=== PATIENT | female | born 1970 | race Caucasian/White ===

== ENCOUNTER 2023-10-14 10:14 | Observation (INO) | payer MEDICAID, SELFPAY ==
[2023-10-14] VITALS (11 sets, daily range): BP systolic 132–172; BP diastolic 61–90; PULSE 78–97; RESP 16–24; TEMP 36.4–37.1; O2SAT 92–96; BMI 40.3
--- NOTE | ~2023-10-14 | XR_ITS ---
EXAMINATION: XR chest 1V portable DATE: 10/14/2023 10:35 INDICATION: Dyspnea. TECHNIQUE: A single frontal view of the chest was obtained. COMPARISON: None. FINDINGS: There is no pneumonia, pleural effusion, or pneumothorax. The heart size is normal. IMPRESSION: 1. No acute cardiopulmonary disease. Reviewed, dictated and finalized at location A. MOVING TECHNICIAN
--- NOTE | ~2023-10-14 | CT_ITS ---
. EXAMINATION: CTA chest PE protocol DATE: 10/14/2023 11:52 INDICATION: Shortness of breath. Elevated d-dimer. TECHNIQUE: Computed tomography angiography (CTA) of the chest was performed with 100 mL Omnipaque-350 intravenous contrast timed to evaluate the pulmonary arteries. Coronal maximum intensity projection 3D-reconstructions were created by the technologist. Automated exposure control and iterative reconst ruction technique were employed. Exam dose: 918.83 mGy-cm total exam DLP. COMPARISON: October 14, 2023 portable AP chest FINDINGS: There is diagnostic contrast enhancement of the pulmonary arteries and no evidence of pulmo nary embolism. No thoracic aortic aneurysm or dissection is detected. Normal heart size. No pericardial or pleural e ffusion. No hilar or mediastinal mass lesion or lymphadenopathy is detected. There are scattered patchy bilateral pulmonary infiltrates with minimal involvement of the right uppe r lobe and more prominent involvement of the left upper lobe, including especially the lingula and le ft lower lobe, with tree-in-bud infiltrates are noted. Findings suggest bilateral pneumonia. Small sliding hiatal hernia. Diffuse idiopathic skeletal hyperostosis of the thoracic spine. Degenerative disc disease at C6-7. IMPRESSION: Patchy bilateral pulmonary infiltrates, greatest in the lingula and left lower lobe, sug gesting bilateral pneumonia No evidence of pulmonary embolus Reviewed, dictated and finalized at [facility]. Reviewed, dictated and finalized at location L. VARNISHER IMPRESSION: Patchy bilateral pulmonary infiltrates, greatest in the lingula an d left lower lobe, suggesting bilateral pneumonia No evidence of pulmonary embolus
--- NOTE | 2023-10-14 10:26 | ECG_ITS ---
Measurements Intervals [place] Rate: 80 P: 55 RI: 156 QRS: 30 QRSD: 89 T: 47 QT: 362 QTc: 418 Interpretive Statements SINUS RHYTHM LOW QRS VOLTAGE IN PRECORDIAL LEADS [QRS DEFLECTION < 1.0 mV IN CHEST LEADS] POSSIBLE ANTERIOR MYOCARDIAL INFARCTION , OF INDETERMINATE AGE [30 ms Q WAVE IN V3/V4, OR R < 0.2 mV IN V4] NO PREVIOUS ECG AVAILABLE FOR COMPARISON Electronically Signed On 10-14-2023 12:32:32 PASTE MAKER by Tawanda Kilpatrick M.D.
[2023-10-14] MEDS: IPRATROPIUM 0.5 MG/ALBUTEROL SULFATE 2.5 MG AMPUL.NEB 3 ML INHALATION ×2 (10:38→17:42)
[2023-10-14] MEDS: methylPREDNISolone SOD SUCC 125 MG VIAL IV PUSH (10:48)
[2023-10-14 10:55] LABS: Hematocrit 47.2 % (35.0-49.0); Hemoglobin 15.9 g/dL (12.0-15.0); Immature Granulocyte Absolute 0.04 K/mm3 (0.00-0.00); Immature Granulocyte Percent A 0.7 % (0.0-0.0); Lymphocytes Absolute Auto 0.66 K/mm3 (1.10-4.50); Lymphocytes Percent Auto 11.1 % (18.0-42.0); Mean Corpuscular HGB Conc 33.7 g/dL (32.0-36.0); Mean Corpuscular Hemoglobin 30.2 pg (27.0-31.0); Mean Corpuscular Volume 89.6 fL (78.0-102.0); Mean Platelet Volume 9.4 fl (9.2-11.8); Monocytes Absolute Auto 0.58 K/mm3 (0.10-0.90); Monocytes Percent Auto 9.8 % (2.0-11.0); Neutrophils Absolute Auto 4.7 K/mm3 (1.7-7.2); Neutrophils Percent Auto 78.4 % (50.0-70.0); Platelet Count Result 265 K/mm3 (150-420); Red Blood Count 5.27 M/mm3 (4.20-5.40); Red Cell Distribution Width 12.2 % (11.6-14.4); White Blood Count 5.9 K/mm3 (4.8-10.8)
[2023-10-14 10:58] LABS: Base Excess ABG 0.9 mmol/L (0-2); HCO3 ABG 23.8 mmol/L (23-29); Oxygen Content ABG 20.9 %vol (16.0-22.0); Oxygen Saturation ABG 92.6 % (95-97); Oxyhemoglobin 91.8 % (94-100); PCO2 ABG 33.3 mmHg (35-45); PO2 ABG 64.2 mmHg (80-90); Total Hemoglobin 16.2 g/dL (12.0-18.0); pH ABG 7.47 (7.35-7.45)
[2023-10-14 10:59] LABS: Device ROOM AIR; Modified Allen's Test Pass; Site Drawn LEFT RADIAL
[2023-10-14 11:11] LABS: Partial Thromboplastin Time 25.6 SEC (23.90-30.70); Prothrombin Time 10.9 Seconds (9.50-12.10)
[2023-10-14 11:14] LABS: D Dimer 1.13 mg/L (0.19-0.50)
[2023-10-14 11:19] LABS: Alanine Aminotransferase 46 U/L (14-59); Albumin Level 3.1 g/dL (3.4-5.0); Alkaline Phosphatase 83 U/L (46-116); Anion Gap 11 mmol/L (8-16); Aspartate Amino Transferase 49 U/L (15-37); Bilirubin,Total 0.4 mg/dL (0.00-1.00); Blood Urea Nitrogen 8 mg/dL (7-18); Calcium 8.4 mg/dL (8.5-10.1); Carbon Dioxide 27 mmol/L (21-32); Chloride 101 mmol/L (98-108); Estimated CRCL calculation 92 ml/min; Estimated Glomerular Filt Rate > 60; Glucose 119 mg/dL (70-99); Magnesium 1.8 mg/dL (1.8-2.4); NT Pro B Type Natriuretic Pept 280 pg/mL (0-125); Osmolality Calculated 287 mOsm/kg (285-295); Potassium 3.1 mmol/L (3.5-5.1); Sodium 139 mmol/L (136-145); Troponin I 17.2 ng/L (0.00-60.4)
[2023-10-14 11:31] LABS: SARS-CoV-2 RNA PCR Negative (Negative)
[2023-10-14 11:34] LABS: Influenza A QL RT-PCR Positive (Negative); Influenza B QL RT-PCR Negative (Negative)
[2023-10-14 11:35] LABS: RSV RNA, RT-PCR Negative (Negative)
--- NOTE | 2023-10-14 12:19 | ED.SOB ---
HPI - SOB/Dyspnea General Chief Complaint: Shortness of Breath/Dyspnea Stated Complaint: sob Source: patient Mode of arrival: ambulatory Limitations: no limitations History of Present Illness HPI Narrative: this is a 52-year-old female with history of COPD and has been having cough congestion over the last 2 to 3 days with temperature of 102 at home feeling feverish with chills and body aches. Cough is nonproductive, with some body aches, patient denies chest pain there is some nausea with no vomiting no abdominal pain no diarrhea constipation no flank pain no dysuria. Patient has a history of COPD has not had an inhaler for the last year patient states that she has been doing well without it since she stopped smoking since months ago. MD elicited complaint: shortness of breath, cough and pain with inspiration Pertinent past history: COPD Onset (ago): day(s) Context: recent illness and anxiety Timing: constant Severity: moderate Related Data Home Medications Medication Instructions Recorded Confirmed No Home Medications 10/14/23 10/14/23 Allergies Allergy/AdvReac Type Severity Reaction Status Date / Time Sulfa (Sulfonamide Allergy Hives Verified 10/14/23 10:21 Antibiotics) Review of Systems Review of Systems: All systems reviewed & are unremarkable except as noted in HPI and below PMFSH Past Medical History Medical History COPD (chronic obstructive pulmonary disease) Exam Const: General: no acute distress and ill appearing HENMT: Head: normal to inspection Neck: Neck: normal visual inspection, no lymphadenopathy and no meningeal signs Chest: Chest palpation & inspection: normal inspection of the chest Resp: Effort & Inspection: normal respiratory effort Auscultation: wheezes and diminished lung sounds Cardio: Rate: regular rate Rhythm: regular rhythm GI: GI Palp: Yes Soft to palpation Auscultation: normal bowel sounds Skin: General skin exam: normal color Rashes: no rashes Neuro: General: patient oriented x3 and moves all extremities Extrem: General: normal to inspection and no clubbing, cyanosis or edema Psych: Mental Status: mental status grossly normal Affect: Anxious affect present Course Course Emergency Course: patient presents with some shortness of breath had a elevated D-dimer and CTA shows no acute pulmonary embolism but does show patchy infiltrate bilateral lung palacios, white count is 5.9 and her potassium is 3.1. Patient had a CTA which does show pneumonia and received ceftriaxone and azithromycin. Patient's vital signs her O2 sats are 95% on room air. Patient also received a dose of p.o. potassium with nebulizer treatment and Solu-Medrol. Patient also has positive diagnosis for influenza A. Vital Signs Vital signs: Vital Signs Temperature 36.7 C 10/14/23 10:15 Pulse Rate 82 10/14/23 10:15 Respiratory Rate 24 H 10/14/23 10:15 Blood Pressure 172/90 H 10/14/23 10:15 Pulse Oximetry 96 10/14/23 10:15 Oxygen Delivery Room Air 10/14/23 10:15 Temperature 36.7 C 10/14/23 10:15 Pulse Rate 78 10/14/23 11:08 Respiratory Rate 18 10/14/23 11:08 Blood Pressure 148/83 H 10/14/23 11:08 Pulse Oximetry 95 10/14/23 11:08 Oxygen Delivery Room Air 10/14/23 11:08 MDM - SOB/Dyspnea Lab Data 10/14/23 10:51 10/14/23 10:51 Labs: Lab Results 10/14/23 10/14/23 10/14/23 Range/Units 10:51 10:51 10:51 WBC 5.9 (4.8-10.8) K/mm3 RBC 5.27 (4.20-5.40) M/mm3 Hgb 15.9 H (12.0-15.0) g/dL Hct 47.2 (35.0-49.0) % MCV 89.6 (78.0-102.0) fL MCH 30.2 (27.0-31.0) pg MCHC 33.7 (32.0-36.0) g/dL RDW 12.2 (11.6-14.4) % Plt Count 265 (150-420) K/mm3 MPV 9.4 (9.2-11.8) fl Immature Gran % (Auto) 0.7 H (0.0-0.0) % Neut % (Auto) 78.4 H (50.0-70.0) % Lymph % (Auto) 11.1 L (18.0-42.0) % [place] % (Auto) 9.8
[2023-10-14] MEDS: POTASSIUM BICARBONATE 25 MEQ TABEF 50 MEQ PO (12:24)
[2023-10-14] MEDS: AZITHROMYCIN 500 MG/NS 250 ML 500 MG/250 ML BAG 250 MG IVPB (12:28)
--- NOTE | 2023-10-14 14:25 | PM.IMHP ---
H&P: HPI History of Present Illness Date/Time: 10/14/23 15:25 Chief Complaint: dyspnea Narrative: This is a 52 year old female patient with past history of COPD, obesity and fibromyalgia who is admitted to the hospital for Influenza A, COPD exacerbation and pneumonia. Patient reports feeling body aches, fever, decreased appetite, cough, fatigue, nausea, vomiting and headache that started 3 days ago and worsened each day. Today she came to ER where she tested positive for Influenza A. Patient reports that she previously used albuterol inhaler but does not currently take any medications. Patient reports she quit smoking 6 months ago and threw out her inhaler at the same time because she did not think she would need it anymore. In the ER patient had decreased potassium of 3.1 and positive D-Dimer. CTA completed to rule out PE. No PE but there were findings consistent with pneumonia so patient was started on IV Rocephin and Azithromycin. Patient reports missing work the past 3 days and wanting a work note on discharge. Review of Systems Review of Systems: All systems reviewed & are unremarkable except as noted in HPI and below PMFSH Past Medical History Medical History COPD (chronic obstructive pulmonary disease) Social History Social History Smoking status: Never smoker Second hand tobacco smoke exposure: No Alcohol intake: never Substance use: never Substance use type: does not use Do You Feel Safe in your Home?: Yes Lack of Transportation: No Lack of Food: Never True Current Housing: I Have Housing Concerned About Future Housing: No Difficulty Paying Gas/Electric Bills: No Difficulty Paying for Meds: No Currently Unemployed: No Education: High School Diploma/GED Difficulty w/ Childcare or Family Care: No Living arrangements: with friend(s) Occupation/Education: unemployed Gender identity (if verbalized by the patient): Female Sexual Orientation (if Verbalized by the Patient): Straight or Heterosexual Spiritual care concerns: No Meds Home Medications and Allergies Home Medications Medication Instructions Recorded Confirmed Type No Home Medications 10/14/23 10/14/23 History Allergies Allergy/AdvReac Type Severity Reaction Status Date / Time Sulfa (Sulfonamide Allergy Hives Verified 10/14/23 10:21 Antibiotics) Vital Signs Vital Signs - 24 hr 10/14/23 10:15 10/14/23 10:25 10/14/23 10:33 Temperature 36.7 C Pulse Rate 82 88 Respiratory Rate 24 H Blood Pressure 172/90 H Pulse Oximetry 96 96 Oxygen Delivery Room Air Room Air 10/14/23 10:39 10/14/23 11:01 10/14/23 11:08 Temperature Pulse Rate 79 84 78 Respiratory Rate 22 H 24 H 18 Blood Pressure 148/83 H Pulse Oximetry 92 95 95 Oxygen Delivery Room Air 10/14/23 12:43 Temperature 37.1 C Pulse Rate 78 Respiratory Rate 18 Blood Pressure 132/71 Pulse Oximetry 95 Oxygen Delivery Room Air Exam Narrative: GENERAL: Somewhat ill-appearing without acute distress HEAD: Normocephalic, atraumatic. ENT:? Mucous membranes moist. CHEST: Slight scattered wheezes on auscultation.? No respiratory distress. HEART: Regular rate and rhythm. ? Normal peripheral pulses. ABDOMEN: Soft, nontender, nondistended. Obese. EXTREMITIES: Normal range of motion. No peripheral edema. SKIN: Warm dry normal color NEURO: Alert and oriented x3. No neuro deficits noted. PSYCH: Normal mood and affect H&P: Results Labs Labs: Short CBC 10/14/23 Range/Units 10:51 WBC 5.9 (4.8-10.8) K/mm3 Hgb 15.9 H (12.0-15.0) g/dL Hct 47.2 (35.0-49.0) % Plt Count 265 (150-420) K/mm3 [facility] 10/14/23 10:51 Sodium 139 Potassium 3.1 L Chloride 101 Carbon Dioxide 27 BUN 8 Creatinine 0.67 Glucose 119 H Calcium 8.4 L Cardiac Enzymes 10/14/23
--- NOTE | 2023-10-14 14:45 | PC.NURSE ---
Pt admitted to room 202 from the ED. Pt is A/Ox3, vss. Pt is independent in her room. She has a deep loose cough that is productive. Pt given instruction regarding the call system, rapid response system and visiting hours. Pt verbalized understanding of instructions.
[2023-10-14] MEDS: MAGNESIUM OXIDE 400 MG TABLET PO (15:47)
[2023-10-14] MEDS: POTASSIUM CHLORIDE 20 MEQ ER TABLET 40 MEQ PO (15:47)
[2023-10-14] MEDS: ACETAMINOPHEN 325 MG TABLET 650 MG PO (15:48)
[2023-10-14] MEDS: SODIUM CHLORIDE 0.9% IV 1,000 ML 200 ML IV CONT (15:48)
--- NOTE | 2023-10-14 17:10 | PC.NURSE ---
Patient states she really does not want to take a narcotic if possible. Asking about taking oral diclofenac, states she has had it in the past and it worked well. HOST COORDINATOR Frankie notified. New orders received.
[2023-10-14] MEDS: DICLOFENAC SOD 75 MG TABLET.EC PO (17:50)
[2023-10-15] VITALS: BP 143/69; PULSE 90; RESP 19; TEMP 36.7; O2SAT 91
[2023-10-15] MEDS: IPRATROPIUM 0.5 MG/ALBUTEROL SULFATE 2.5 MG AMPUL.NEB 3 ML INHALATION ×2 (00:24→05:34)
[2023-10-15 00:27] VITALS: PULSE 70; RESP 16; O2SAT 92
[2023-10-15 00:44] VITALS: PULSE 71; RESP 16; O2SAT 95
[2023-10-15 05:19] LABS: Basophils Absolute Auto 0.01 K/mm3 (0.00-0.10); Basophils Percent Auto 0.2 % (0.0-1.0); Hematocrit 44.8 % (35.0-49.0); Hemoglobin 14.8 g/dL (12.0-15.0); Immature Granulocyte Absolute 0.03 K/mm3 (0.00-0.00); Immature Granulocyte Percent A 0.5 % (0.0-0.0); Lymphocytes Absolute Auto 1.24 K/mm3 (1.10-4.50); Lymphocytes Percent Auto 19.7 % (18.0-42.0); Mean Corpuscular Hemoglobin 30.1 pg (27.0-31.0); Mean Corpuscular Volume 91.1 fL (78.0-102.0); Mean Platelet Volume 9.4 fl (9.2-11.8); Monocytes Absolute Auto 0.83 K/mm3 (0.10-0.90); Monocytes Percent Auto 13.2 % (2.0-11.0); Neutrophils Absolute Auto 4.2 K/mm3 (1.7-7.2); Neutrophils Percent Auto 66.4 % (50.0-70.0); Platelet Count Result 260 K/mm3 (150-420); Red Blood Count 4.92 M/mm3 (4.20-5.40); Red Cell Distribution Width 12.5 % (11.6-14.4); White Blood Count 6.3 K/mm3 (4.8-10.8)
[2023-10-15 05:36] VITALS: PULSE 78; RESP 16; O2SAT 94
[2023-10-15 05:38] LABS: Alanine Aminotransferase 44 U/L (14-59); Albumin Level 2.8 g/dL (3.4-5.0); Alkaline Phosphatase 77 U/L (46-116); Anion Gap 10 mmol/L (8-16); Aspartate Amino Transferase 49 U/L (15-37); Bilirubin,Total 0.3 mg/dL (0.00-1.00); Blood Urea Nitrogen 12 mg/dL (7-18); Calcium 8.2 mg/dL (8.5-10.1); Carbon Dioxide 25 mmol/L (21-32); Chloride 105 mmol/L (98-108); Estimated CRCL calculation 74 ml/min; Estimated Glomerular Filt Rate > 60; Glucose 102 mg/dL (70-99); Magnesium 1.8 mg/dL (1.8-2.4); Osmolality Calculated 289 mOsm/kg (285-295); Potassium 3.7 mmol/L (3.5-5.1); Sodium 140 mmol/L (136-145); Total Protein 6.4 g/dL (6.4-8.2)
[2023-10-15 05:44] VITALS: PULSE 68; RESP 18; O2SAT 98
[2023-10-15] MEDS: HYDROcodone/acetaminophen (*CRX) 5-325 MG TABLET 1 TAB PO (07:10)
[2023-10-15 07:34] VITALS: BP 168/82; PULSE 77; RESP 16; TEMP 36.4; O2SAT 94
--- NOTE | 2023-10-15 07:45 | PM.DS ---
DS: Admitting Diagnosis Discharge Date 10/15/2023 Admitting Diagnosis Pneumonia, Influenza , Hypoxia DS: Discharge Diagnosis Discharge Diagnosis (1) Acute exacerbation of chronic obstructive pulmonary disease: Code(s): J44.1 - Chronic obstructive pulmonary disease with (acute) exacerbation Status: Acute Assessment and Plan: continue with breathing treatments (2) Pneumonia: Qualifiers: Laterality: bilateral Lung location: lower lobe of lung Pneumonia type: due to unspecified organism Qualified Code(s): J18.9 - Pneumonia, unspecified organism Code(s): J18.9 - Pneumonia, unspecified organism Status: Acute Assessment and Plan: CXR unremarkable but CTA showed areas of likely pneumonia. This could be viral only as patient has influenza A. She was started on Rocephin and azithromycin which will be continued. (3) Influenza A: Code(s): J10.1 - Influenza due to other identified influenza virus with other respiratory manifestations Status: Acute Assessment and Plan: Supportive care. Onset 3-4 days ago. IV fluids 1 liter given in ER, will give another liter over 5 hours then hold further at this time. Considered Tamiflu but GI side effects likely outweigh any benefit, would reapproach if she gets worse but expect that she will be able to discharge tomorrow. (4) Acute hypokalemia: Code(s): E87.6 - Hypokalemia Status: Acute Assessment and Plan: Potassium 3.1 and has been supplemented. Recheck with AM labs. (5) COPD (chronic obstructive pulmonary disease): Code(s): J44.9 - Chronic obstructive pulmonary disease, unspecified Status: Acute Assessment and Plan: Mild COPD history, will use nebs/inhaler and prednisone. Patient also being treated with ABX due to pneumonia findings. Blood gas without hypercapnia. DS: Summary Hospital Course Reason for hospitalization: COPD exacerbation , Influenza A Hospital Course: This is the 52 year old admitted with Influenza A and COPD exacerbation and Pneumonia. Patient was treated with IV antibiotics and IV steroids with inhaler. Patient has continued to improve and she stable to go home. Patient has remained a febrile and is able to eat and drink where there has been no nausea and or vomiting and she is able to eat without any difficulties. Patient will discharge with oral antibiotics and oral steroids. Patient has not required oxygen and is safe for discharge Nebulizer has been ordered for patient with medication. Patient to follow up with PCP for post hosptial visit. This is a 52 year old female patient with past history of COPD, obesity and fibromyalgia who is admitted to the hospital for Influenza A, COPD exacerbation and pneumonia.? Patient reports feeling body aches, fever, decreased appetite, cough, fatigue, nausea, vomiting and headache that started 3 days ago and worsened each day.? Today she came to ER where she tested positive for Influenza A.? Patient reports that she previously used albuterol inhaler but does not currently take any medications.? Patient reports she quit smoking 6 months ago and threw out her inhaler at the same time because she did not think she would need it anymore.? In the ER patient had decreased potassium of 3.1 and positive D-Dimer.? CTA completed to rule out PE.? No PE but there were findings consistent with pneumonia so patient was started on IV Rocephin and Azithromycin.? Patient reports missing work the past 3 days and wanting a work note on discharge. Time Spent with Patient Time attestation: Total time spent providing and/or coordinating discharge services: Exam Narrative: GENERAL: Somewhat well-appearing without acute distress HEAD: Normocephalic, atraumatic. ENT:? Mucous membranes moist. CHEST: Slight scattered wheezes on auscultation.? No respiratory distress. HEART: Regular rate and rhythm. ? Normal peripheral pulses. ABDOMEN: Soft, non
[2023-10-15 07:51] LABS: Hemoglobin A1C 6.6 % (<5.7)
[2023-10-15] MEDS: MAGNESIUM OXIDE 400 MG TABLET PO (08:49)
[2023-10-15] MEDS: predniSONE 20 MG TABLET 40 MG PO (08:49)
[2023-10-15] MEDS: AZITHROMYCIN 250 MG TABLET 500 MG PO (08:50)
[2023-10-15] MEDS: amLODIPine BESYLATE 5 MG TABLET PO (09:53)
--- NOTE | 2023-10-15 11:29 | PC.NURSE ---
Pt discharge instruction completed. Pt instructed regarding the discharge medications, follow up appointments with PCP, inportance of getting a primary MD for health care. Signs and symtomps to report to MD and S&S that need a return to the ER. Pt verbalized understanding of all instructions.
--- NOTE | 2023-10-18 10:06 | PC.NURSE ---
Discharge call back attempted, no answer
--- NOTE | 2023-10-20 10:24 | PC.NURSE ---
Discharge call back attempted, no answer
--- NOTE | 2023-10-21 13:35 | PC.NURSE ---
Discharge call back attempted, no answer
== END 2023-10-15 11:00 | disposition home or self-care (01) ==
LOC: CHSED 12:24 → CHS2ND 13:21
PROVIDERS: Nurse Practitioner; Nurse Practitioner Family; Admitting Provider Internal Medicine; Emergency Provider Emergency Medicine; Visit Provider Internal Medicine
DX: J10.00 Influenza due to other identified influenza virus with unspecified type of pneumonia (principal); J44.0 Chronic obstructive pulmonary disease with (acute) lower respiratory infection; J44.1 Chronic obstructive pulmonary disease with (acute) exacerbation; J18.9 Pneumonia, unspecified organism; E87.6 Hypokalemia; R79.1 Abnormal coagulation profile; M79.7 Fibromyalgia; E66.9 Obesity, unspecified; Z68.41 Body mass index [BMI] 40.0-44.9, adult; Z20.822 Contact with and (suspected) exposure to COVID-19; Z87.891 Personal history of nicotine dependence
CPT/HCPCS: 36415; 36600; 71045; 71275; 80053; 82805; 83036; 83735; 83880; 84484; 85025; 85380; 85610; 85730; 87040; 87637; 93005; 94640; 96361; 96365; 96368; 96375; 99285; A9270; G0378; G0379; J0456; J0696; J2930; J7030; J7512; Q9967

== ENCOUNTER 2024-01-17 00:29 | Emergency (ER) | payer SELFPAY ==
[2024-01-17] VITALS (23 sets, daily range): BP systolic 103–134; BP diastolic 64–88; PULSE 68–101; RESP 11–21; TEMP 36.6; O2SAT 93–98
--- NOTE | ~2024-01-17 | XR_ITS ---
Portable chest x-ray Comparison: 10/14/2023 Clinical History: Chest pain Findings: Lungs are clear, without focal consolidation or pleural effusion. Cardiomediastinal silho uette is stable. Bones and soft tissues are unremarkable. Impression: Normal chest. Reviewed, dictated and finalized at [facility]. Impression: Normal chest.
--- NOTE | ~2024-01-17 | CT_ITS ---
Clinical Indication: Chest pain CT Scan of the Chest with Contrast: Technique: Contiguous sections were acquired throughout the chest after intravenous administration of 100 cc of Omnipaque 350. Dose reduction technique was used on this scan by utilizing automated expos ure control and iterative reconstruction technique. The dose-length product (DLP) was 928.62 mGy-cm. COMPARISON: 10/14/2023 Findings: There is no evidence of any significant mediastinal, hilar or axillary lymphadenopathy. There is no f illing defect in the pulmonary arterial tree to suggest pulmonary embolus. There is no evidence of ao rtic dissection or aneurysm. There is no evidence of pleural or pericardial effusion. Several probable focal nodular scarring at the anteromedial right middle lobe. No other pulmonary abn ormality seen. Images through the upper abdomen reveal no abnormalities. Impression: No evidence of pulmonary embolus, aortic dissection, or aortic aneurysm. No acute pulmonary abnormality seen. Probable focal scarring/nodularity right middle lobe, unchanged. Reviewed, dictated and finalized at location M. Impression: No evidence of pulmonary embolus, aortic dissection, or aortic aneurysm. No acute pulmonary abnormality seen. Probable focal scarring/nodularity right m iddle lobe, unchanged.
--- NOTE | 2024-01-17 00:31 | ECG_ITS ---
SEE SCANNED COPY FOR CONFIRMED REPORT. MTDD
--- NOTE | 2024-01-17 00:42 | ED.CHESTPAIN ---
HPI - Chest Pain General Chief Complaint: Chest Pain Stated Complaint: chest pain Time Seen by Provider: 01/17/24 00:37 Source: patient Mode of arrival: ambulatory Limitations: no limitations History of Present Illness HPI narrative: 53-year-old white female complained of chest pain for the past 2 weeks she says the pain is been under her right breast and laterally and also over her sternum is worsened has been is been constant for the last 2 days sharp before that was coming and going. It is worse when she takes a deep breath. A day or 2 ago she had some pain in her back between her shoulder blades but has no back pain today. denies any nausea or vomiting. She has had some diarrhea, loose stools in last 24 hours. Otherwise she is eating and drinking fine and voiding fine. Denies any rash or itching bleeding or bruising lumps or bumps or any other pain besides her chest. Denies any fever, runny nose sore throat. She says her left foot has chronic swelling but has not changed any. Patient denies any cough. She said she had admission to the hospital in September here for pneumonia. Patient denies any other complaints. 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 She has history of depression COPD she is a smoker. Denies any kidney disease liver disease or heart disease Social history she is a smoker denies alcohol illicit drug use or marijuana use. Family history denies any history of sudden cardiac or venous thromboembolism her family. 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 Allergies sulfa Related Data Allergies Allergy/AdvReac Type Severity Reaction Status Date / Time Sulfa (Sulfonamide Allergy Hives Verified 10/14/23 10:21 Antibiotics) Review of Systems Review of Systems: All systems reviewed & are unremarkable except as noted in HPI and below PMFSH Past Medical History Medical History COPD (chronic obstructive pulmonary disease) Social History Social History Smoking status: Never smoker Second hand tobacco smoke exposure: No Alcohol intake: never Substance use: never Substance use type: does not use Do You Feel Safe in your Home?: Yes Lack of Transportation: No Lack of Food: Never True Current Housing: I Have Housing Concerned About Future Housing: No Difficulty Paying Gas/Electric Bills: No Difficulty Paying for Meds: No Currently Unemployed: No Education: High School Diploma/GED Difficulty w/ Childcare or Family Care: No Living arrangements: with friend(s) Occupation/Education: unemployed Gender identity (if verbalized by the patient): Female Sexual Orientation (if Verbalized by the Patient): Straight or Heterosexual Spiritual care concerns: No Exam Narrative: White female no apparent distress. ?Head:? Normocephalic atraumatic.? Eyes conjunctiva pink sclera nonicteric.? Ears externally normal.? Oropharynx is clear with moist mucous membranes no exudates.? Neck is supple no lymphadenopathy nontender full range of motion.? Back is nontender.? Chest nontender.? Lungs are clear without wheezes rales or rhonchi.? Heart is regular rate rhythm without murmurs gallops or rubs.? Abdomen soft and nontender no hepatosplenomegaly or masses no CVA tenderness no abdominal bruits.? Extremities no cyanosis clubbing or edema.? no calf tenderness negative Homans sign bilateral. Neurological she is alert and oriented x4 motor and sensory grossly intact.? Skin is warm and
[2024-01-17] MEDS: IPRATROPIUM 0.5 MG/ALBUTEROL SULFATE 2.5 MG AMPUL.NEB 3 ML INHALATION ×2 (00:58→04:01)
[2024-01-17 01:13] LABS: Hemoglobin 15.3 g/dL (12.0-15.0); Mean Corpuscular HGB Conc 33.3 g/dL (32-36); Mean Corpuscular Hemoglobin 30.2 pg (27.0-31.0); Mean Corpuscular Volume 90.9 fL (78.0-102.0); Mean Platelet Volume 9.1 fl (9.2-11.8); Platelet Count Result 390 K/mm3 (150-420); Red Blood Count 5.06 M/mm3 (4.20-5.40); Red Cell Distribution Width 12.7 % (11.6-14.4); White Blood Count 13.3 K/mm3 (4.8-10.8)
[2024-01-17 01:33] LABS: D Dimer 0.38 mg/L (0.19-0.50); Partial Thromboplastin Time 23.6 Sec (23.9-30.70); Prothrombin Time 10.6 Seconds (9.50-12.1)
[2024-01-17 02:04] LABS: Alanine Aminotransferase 19 U/L (6-35); Alkaline Phosphatase 91 U/L (38-126); Anion Gap 9 mmol/L (4-12); Aspartate Amino Transferase 37 U/L (14-36); Bilirubin,Total 0.6 mg/dL (0.2-1.3); Blood Urea Nitrogen 18 mg/dL (7-17); Calcium 9.1 mg/dL (8.4-10.2); Carbon Dioxide 25 mmol/L (22-30); Chloride 104 mmol/L (98-107); Estimated CRCL calculation 71 ml/min; Estimated Glomerular Filt Rate > 60; Glucose 163 mg/dL (65-110); Magnesium 1.7 mg/dL (1.6-2.3); Osmolality Calculated 291 mOsm/kg (285-295); Potassium 2.8 mmol/L (3.4-5.0); Sodium 138 mmol/L (137-145)
[2024-01-17 02:10] LABS: Troponin I < 0.012 ng/mL (0.000-0.034)
[2024-01-17] MEDS: POTASSIUM CHLORIDE 20 MEQ PACKET (FOR LIQUID) 40 MEQ PO (02:13)
[2024-01-17] MEDS: SODIUM CHLORIDE 0.9% IV 1,000 ML 100 ML IV CONT (02:26)
[2024-01-17] MEDS: KCL 20 MEQ/SW 100 ML 100 ML 50 MEQ IVPB (02:27)
--- NOTE | 2024-01-17 03:09 | PC.NURSE ---
Pt resting, VSS, continuing to monitor. Explained POC for another blood draw. Call nascimento at side.
[2024-01-17] MEDS: POTASSIUM CHLORIDE 20 MEQ ER TABLET 40 MEQ PO ×2 (03:56→06:48)
[2024-01-17 04:10] LABS: Lactic Acid Reflex 1.5 mmol/L (0.7-2.0)
[2024-01-17 04:12] LABS: NT Pro B Type Natriuretic Pept < 20 pg/mL (19.9-100)
[2024-01-17 04:16] LABS: Troponin I < 0.012 ng/mL (0.000-0.034)
[2024-01-17 04:23] LABS: Lipase 93 U/L (23-300)
--- NOTE | 2024-01-17 04:26 | PC.NURSE ---
Explained to pt about wait time for CTA results. Pt reports feeling some better, continuing to monitor, VSS.
--- NOTE | 2024-01-17 04:30 | PC.NURSE ---
Pt resting comfortable, no distress, RR even and nonlabored, still awaiting CTA results.
--- NOTE | 2024-01-17 05:23 | PC.NURSE ---
Pt up ambulated to BR per self, no distress noted, then back to bed w/o any c/o at this time. CTA results still pending. VSS. Continuing to monitor.
--- NOTE | 2024-01-17 06:42 | PC.NURSE ---
Pt sleeping, RR even and nonlabored, all CTA scan results back and discussed c pt. POC to d/c and have pt f/u c PMD of choice. Pt given f/u Drs. bowen call this morning. Pt understanding of instructions.
== END 2024-01-17 06:59 | disposition home or self-care (01) ==
PROVIDERS: Emergency Provider Emergency Medicine
DX: R07.89 Other chest pain (principal); E87.6 Hypokalemia; I10 Essential (primary) hypertension; E11.9 Type 2 diabetes mellitus without complications; Z86.711 Personal history of pulmonary embolism; J44.9 Chronic obstructive pulmonary disease, unspecified
CPT/HCPCS: 36415; 71045; 71275; 80053; 83605; 83690; 83735; 83880; 84484; 85027; 85380; 85610; 85730; 93005; 94640; 96365; 96366; 99284; A9270; J3480; J7030; Q9967

== ENCOUNTER 2024-02-15 11:12 | Outpatient (CLI) | payer OTHER, SELFPAY ==
[2024-02-15 11:37] LABS: Basophils Absolute Auto 0.08 K/mm3 (0.00-0.10); Basophils Percent Auto 0.7 % (0.0-1.0); Eosinophils Absolute Auto 0.25 K/mm3 (0.02-0.50); Eosinophils Percent Auto 2.3 % (1.0-6.0); Hematocrit 47.6 % (35.0-49.0); Hemoglobin 15.7 g/dL (12.0-15.0); Immature Granulocyte Absolute 0.05 K/mm3 (0.00-0.00); Immature Granulocyte Percent A 0.5 % (0.0-0.0); Lymphocytes Absolute Auto 3.83 K/mm3 (1.10-4.50); Lymphocytes Percent Auto 35.2 % (18.0-42.0); Mean Corpuscular Hemoglobin 30.4 pg (27.0-31.0); Mean Corpuscular Volume 92.1 fL (78.0-102.0); Mean Platelet Volume 8.9 fl (9.2-11.8); Monocytes Absolute Auto 0.51 K/mm3 (0.10-0.90); Monocytes Percent Auto 4.7 % (2.0-11.0); Neutrophils Absolute Auto 6.15 K/mm3 (1.70-7.20); Neutrophils Percent Auto 56.6 % (50.0-70.0); Platelet Count Result 466 K/mm3 (150-420); Red Blood Count 5.17 M/mm3 (4.20-5.40); Red Cell Distribution Width 12.2 % (11.6-14.4); White Blood Count 10.9 K/mm3 (4.8-10.8)
[2024-02-15 11:48] LABS: Creatinine Urine 135.53 mg/dL (40-278); MALB Creatinine Ratio 16.9 mg/g (0-30)
[2024-02-15 11:49] LABS: Hemoglobin A1C 6.5 % (<5.7)
[2024-02-15 12:08] LABS: Alanine Aminotransferase 25 U/L (14-59); Albumin Level 3.2 g/dL (3.4-5.0); Alkaline Phosphatase 89 U/L (46-116); Anion Gap 8 mmol/L (4-12); Aspartate Amino Transferase 18 U/L (15-37); Bilirubin,Total 0.3 mg/dL (0.00-1.00); Blood Urea Nitrogen 8 mg/dL (7-18); Calcium 8.9 mg/dL (8.5-10.1); Carbon Dioxide 30 mmol/L (21-32); Chloride 103 mmol/L (98-108); Cholesterol 246 mg/dL (0-200); Estimated Glomerular Filt Rate > 60; Glucose 118 mg/dL (70-99); HDL Direct 30 mg/dL (40-60); LDL Cholesterol Calculated 174 mg/dL (<130); Osmolality Calculated 291 mOsm/kg (285-295); Potassium 3.8 mmol/L (3.5-5.1); Sodium 141 mmol/L (136-145); Total Protein 6.8 g/dL (6.4-8.2); Triglycerides 211 mg/dL (0-150)
[2024-02-15 12:30] LABS: Thyroid Stimulating Hormone Reflex 1.82 u/IU/mL (0.36-3.74)
== END 2024-02-15 11:13 | disposition home or self-care (01) ==
LOC: CHSLAB 11:17
PROVIDERS: PCP Nurse Practitioner Family; Visit Provider Nurse Practitioner Family
DX: E11.9 Type 2 diabetes mellitus without complications (principal); Z00.00 Encounter for general adult medical examination without abnormal findings
CPT/HCPCS: 36415; 80053; 80061; 82043; 83036; 84443; 85025

== ENCOUNTER 2024-06-11 08:44 | Emergency (ER) | payer OTHER, SELFPAY ==
[2024-06-11] VITALS (15 sets, daily range): BP systolic 102–135; BP diastolic 50–114; PULSE 55–78; RESP 8–28; TEMP 36.4–36.8; O2SAT 95–99
--- NOTE | ~2024-06-11 | XR_ITS ---
EXAMINATION: XR chest 2V DATE: 06/11/2024 09:38 INDICATION: Cough and wheezing. TECHNIQUE: Frontal and lateral views of the chest were obtained. COMPARISON: Chest single view 01/17/24, chest CT 01/17/2024 FINDINGS: There is no pneumonia, pleural effusion, or pneumothorax. The heart size is normal. There a re prominent pericardial fat pads. IMPRESSION: 1. No acute cardiopulmonary disease. Reviewed, dictated and finalized at location A.
--- NOTE | ~2024-06-11 | CT_ITS ---
EXAMINATION: CT abdomen pelvis wo con DATE: 06/11/2024 09:39 INDICATION: Left flank pain. Nausea. Diarrhea. TECHNIQUE: Computed tomography (CT) of the abdomen and pelvis was performed without intravenous contr ast. Automated exposure control and iterative reconstruction technique were employed. The dose-length product was 983.12 mGy-cm. COMPARISON: Chest CT 01/17/2024 FINDINGS: The visualized portions of the lung bases demonstrate mild atelectasis. No pleural effusion . The heart size is normal. No pericardial effusion. There is a small sliding hiatal hernia. There is diffuse hepatic steatosis. The gallbladder, spleen, pancreas, adrenal glands, and kidneys are normal . There is no urolithiasis. There is diverticulosis of the colon without evidence of diverticulitis. There are no dilated loops of bowel. The appendix is normal. There are no pathologically enlarged lym ph nodes. There is no free intraperitoneal fluid. There is moderate thoracic and lumbar spondylosis. IMPRESSION: 1. No urolithiasis. 2. Small sliding hiatal hernia. Reviewed, dictated and finalized at location A.
--- NOTE | 2024-06-11 08:46 | ECG_ITS ---
Test Date: 2024-06-11 08:52:58 Measurements Intervals [place] Rate: 73 P: 64 ME: 173 QRS: 11 QRSD: 86 T: 4 QT: 393 QTc: 436 Interpretive Statements SINUS RHYTHM WITH OCCASIONAL VENTRICULAR PREMATURE COMPLEXES LOW QRS VOLTAGE IN PRECORDIAL LEADS [QRS DEFLECTION < 1.0 mV IN CHEST LEADS] No previous ECG available for comparison Electronically Signed On 06-13-2024 11:56:18 CDT by Tawanda Kilpatrick M.D.
--- NOTE | 2024-06-11 09:01 | ED_ITS ---
HPI - General Adult General Chief complaint: Back Pain/Injury Stated complaint: chest & side pain Time Seen by Provider: 06/11/24 09:01 History of Present Illness HPI narrative: 53-year-old white female started with left flank pain radiating around to her side under her ribs under left breast and abdomen since May 31. She was diagnosed with a urinary tract infection placed on an antibiotic that she does remember the name of. Her symptoms persist so on for 5 days ago she went back and saw the nurse practitioner and they said she did not have any urinary tract infection but she could follow-up in June with the doctor. Patient has continued to have pain 6/10 at rest and 10 when she is moving around or pushing on the area. She denies any cramps or trauma or injury. She also says her left arm has been tingling off and on for 2 weeks she takes nonsteroidal. Denies any cough or chest pain. Denies any history of heart disease lung disease venous thromboembolism swelling lumps or bumps rash or itching bleeding or bruising dizziness or lightheadedness weakness or numbness problems walking talking seeing or hearing eating or drinking voiding or stooling or any other complaints. Related Data Home Medications Medication Instructions Recorded Confirmed hydrochlorothiazide 25 mg tablet 25 mg PO DAILY 02/15/24 omeprazole 20 mg capsule,delayed 20 mg PO DAILY 02/15/24 release diclofenac sodium 75 mg 75 mg PO DAILY PRN pain 02/19/24 tablet,delayed release pentosan polysulfate sodium 100 mg 100 mg PO TID 02/19/24 capsule (Elmiron) Allergies Allergy/AdvReac Type Severity Reaction Status Date / Time Sulfa (Sulfonamide Allergy Hives Verified 06/11/24 08:50 Antibiotics) Review of Systems 2 Review of Systems: All systems reviewed & are unremarkable except as noted in HPI and below PMFSH Past Medical History Medical History (Updated 06/11/24 @ 10:10 by Aries Velazco MD) Acute hypokalemia Arthritis Chronic back pain COPD (chronic obstructive pulmonary disease) Degenerative disk disease Depression Diabetes mellitus type II, uncontrolled Fibromyalgia History of DVT (deep vein thrombosis) History of pulmonary embolism Hypertension Interstitial cystitis Nicotine dependence Pneumonia Retinal detachment of right eye due to tear of retina Surgical History Surgical History History of carpal tunnel surgery of left wrist History of carpal tunnel surgery of right wrist History of cataract surgery History of ear, nose, and throat (ENT) surgery Hx of tonsillectomy Family History Family History (Updated 02/16/24 @ 10:07 by Danyelle Kidd APRN) Sibling Breast cancer Hypertension Diabetes mellitus Mother Hypokalemia Hypertension Sibling Bipolar disorder Sibling Liver failure Breast cancer Father Dementia Social History Social History Smoking packs per day: 1 Smoking cigarettes per day: 20.0 Years smoked: 30 Smoking pack-years: 30.00 Smoking status: Current every day smoker Tobacco type: cigarettes Smokeless tobacco user: chewing tobacco Second hand tobacco smoke exposure: No Alcohol intake: never Alcohol use details: reports social drinker, none currently Substance use: former Substance use type: marijuana Do You Feel Safe in your Home?: Yes Lack of Transportation: No Lack of Food: Never True Current Housing: I Have Housing Concerned About Future Housing: No Difficulty Paying Gas/Electric Bills: No Difficulty Paying for Meds: No Currently Unemployed: No Education: High School Diploma/GED Difficulty w/ Childcare or Family Care: No Living arrangements: with friend(s) Occupation/Education: unemployed Gender identity (if verbalized by the patient): Female Sexual Orientation (if Verbalized by the Patient): Straight or Heterosexual Spiritual care concerns: No Exam Narrative: White female patient with Moderate distress.? Head normocephalic, atraumatic.? Eyes conjunctiva pink sclera nonicteric.? Extraocular movements are intact.? Ears externally normal.? Oropharynx is clear with moist mucous membranes without exudates.? Neck is supple nontender no lymphadenopathy.? Back with left flank tenderness and tenderness radiating around the left lateral to anterior lower ribs And left upper quadrant abdominal tenderness. Lungs are clear.? Heart is regular rate and rhythm without murmurs gallops or rubs.? Chest wall nontender. Abdomen is soft and left upper quadrant tenderness, no hepatosplenomegaly or masses no CVA tenderness no abdominal bruits.? Extremities no cyanosis clubbing or edema.? Skin is warm and dry without rashes or lesions.? Neurological patient is alert and oriented x4.? Motor and sensory grossly intact.? Gait is normal. Course Vital Signs Vital signs: Vital Signs Temperature 36.4 C L 06/11/24 08:46 Pulse Rate 78 06/11/24 08:46 Respiratory Rate 22 H 06/11/24 08:46 Blood Pressure 135/114 H 06/11/24 08:46 Pulse Oximetry 98 06/11/24 08:46 Oxygen Delivery Room Air 06/11/24 08:46 Temperature 36.4 C L 06/11/24 08:46 Pulse Rate 68 06/11/24 10:00 Respiratory Rate 17 06/11/24 10:00 Blood Pressure 120/58 L 06/11/24 10:00 Pulse Oximetry 98 06/11/24 10:00 Oxygen Delivery Room Air 06/11/24 10:00 Medical Decision Making MDM Narrative Medical decision making narrative: Patient was placed in Room # 1 History and physical was performed. 53-year-old white female complaining of left flank pain radiating around her left chest and upper abdomen recently treated with a UTI since 05/31/2024. chest x-ray no active disease CT abdomen and pelvis showed:1. No urolithiasis. 2. Small sliding hiatal hernia. Normal D-dimer coags troponin. Hemoglobin 16.3 the rest of CBC was normal. Potassium 3.3 the rest of the CMP was normal. Independent Historian: patient External Source Review: Differential Dx includes but not limited to: musculoskeletal pneumonia PE to [place] electrolyte imbalance Medications were Reviewed: home meds reviewed Independently Interpreted by me: EKG showed sinus rhythm with occasional PVC porous progression across precordium low-voltage impression abnormal EKG as independently interpreted by me. Chest x-ray showed no active disease as independently interpreted by me. As well as over-read by the radiologist Meds, treatment, ED course: Toradol 30 mg IV, she took her Klor-Con 20 mEq an extra 1 was her potassium was 3.3 , pain went from a 6 to a 5. Social Situation Impacting Patients Care: History of chronic back pain history of fibromyalgia Shared decision Making: evaluation was discussed all questions were asked and answered patient agreed with the plan. She is going to take her diclofenac and then Tylenol 1000 mg 3 times a day and tramadol 50 3 times a day, low heating pad or ice and follow up with her primary care provider Dr. Nolan this week. DISCHARGE DIAGNOSIS: Musculoskeletal chest wall pain mild hypokalemia DISPOSITION: discharge home CONDITION AT DISCHARGE: stable Vital Signs Vital Signs: Vital Signs Temperature 36.4 C L 06/11/24 08:46 Pulse Rate 78 06/11/24 08:46 Respiratory Rate 22 H 06/11/24 08:46 Blood Pressure 135/114 H 06/11/24 08:46 Pulse Oximetry 98 06/11/24 08:46 Oxygen Delivery Room Air 06/11/24 08:46 Temperature 36.4 C L 06/11/24 08:46 Pulse Rate 68 06/11/24 10:00 Respiratory Rate 17 06/11/24 10:00 Blood Pressure 120/58 L 06/11/24 10:00 Pulse Oximetry 98 06/11/24 10:00 Oxygen Delivery Room Air 06/11/24 10:00 Lab Data 06/11/24 09:02 06/11/24 09:02 Labs: Lab Results 06/11/24 06/11/24 Range/Units 09:02 09:13 WBC 9.3 (4.8-10.8) K/mm3 RBC 5.27 (4.20-5.40) M/mm3 Hgb 16.3 H (12.0-15.0) g/dL Hct 48.1 (35.0-49.0) % MCV 91.3 (78.0-102.0) fL MCH 30.9 (27.0-31.0) pg MCHC 33.9 (32-36) g/dL RDW 13.2 (11.6-14.4) % Plt Count 390 (150-420) K/mm3 MPV 9.1 L (9.2-11.8) fl PT 11.3 (9.50-12.1) Seconds INR 1.0 APTT 25.7 (23.9-30.70) Sec D-Dimer 0.33 (0.19-0.50) mg/L Sodium 140 (136-145) mmol/L Potassium 3.3 L (3.5-5.1) mmol/L Chloride 101 (98-108) mmol/L Carbon Dioxide 30 (21-32) mmol/L Anion Gap 9 (4-12) mmol/L BUN 10 (7-18) mg/dL Creatinine 0.79 (0.55-1.02) mg/dL Estim Creat Clear Calc 76 ml/min Estimated GFR > 60 (59 - ) Glucose 128 H (70-99) mg/dL Calculated Osmolality 291 (285-295) mOsm/kg Calcium 8.8 (8.5-10.1) mg/dL Total Bilirubin 0.6 (0.00-1.00) mg/dL AST 19 (15-37) U/L ALT 27 (14-59) U/L Alkaline Phosphatase 82 (46-116) U/L Troponin I < 4.0 (0.00-60.4) ng/L Total Protein 7.0 (6.4-8.2) g/dL Albumin 3.3 L (3.4-5.0) g/dL Discharge Plan Discharge Clinical Impression: Acute chest wall pain, Acute hypokalemia Patient Disposition: Home, Self-Care Condition: Stable Instructions: Hypokalemia (ED), Musculoskeletal Pain (ED) Additional Instructions: take her potassium pill twice a day increased from once a day. Take her diclofenac daily, Tylenol 1000 mg 3 times a day and/or tramadol 50 mg 3 times a day as needed for pain. Use ice packs and or low heating pad for 20 minutes as needed for pain. Follow-up with Dr. Nolan your primary care provider next week. Return if you get worse or develops any new symptoms. Prescriptions: No Action amlodipine [Norvasc] 5 mg tablet 5 mg PO DAILY Qty: 30 0RF ipratropium-albuterol 0.5 mg-3 mg(2.5 mg base)/3 mL solution for nebulization 3 ml inhalation QID PRN (Reason: shortness of breath or wheezing) Qty: 90 0RF potassium chloride 20 mEq tablet,ER particles/crystals 20 meq PO DAILY 15 Days Qty: 15 0RF albuterol sulfate 90 mcg/actuation HFA aerosol inhaler 2 puff inhalation QID PRN (Reason: shortness of breath or wheezing) Qty: 6.7 0RF omeprazole 20 mg capsule,delayed release(DR/EC) 20 mg PO DAILY hydrochlorothiazide 25 mg tablet 25 mg PO DAILY escitalopram oxalate 20 mg tablet 20 mg PO DAILY Qty: 30 0RF aspirin [Adult Low Dose Aspirin] 81 mg tablet,delayed release (DR/EC) 81 mg PO DAILY Qty: 30 2RF Rx Instructions: take with food Elmiron 100 mg capsule 100 mg PO TID diclofenac sodium 75 mg tablet,delayed release (DR/EC) 75 mg PO DAILY PRN (Reason: pain) Follow-up/Referrals: UNKNOWN,DOCTOR [Non-Staff] - Time of Disposition: 10:10
[2024-06-11 09:12] LABS: Hematocrit 48.1 % (35.0-49.0); Hemoglobin 16.3 g/dL (12.0-15.0); Mean Corpuscular HGB Conc 33.9 g/dL (32-36); Mean Corpuscular Hemoglobin 30.9 pg (27.0-31.0); Mean Corpuscular Volume 91.3 fL (78.0-102.0); Mean Platelet Volume 9.1 fl (9.2-11.8); Platelet Count Result 390 K/mm3 (150-420); Red Blood Count 5.27 M/mm3 (4.20-5.40); Red Cell Distribution Width 13.2 % (11.6-14.4); White Blood Count 9.3 K/mm3 (4.8-10.8)
[2024-06-11 09:20] LABS: Partial Thromboplastin Time 25.7 Sec (23.9-30.70); Prothrombin Time 11.3 Seconds (9.50-12.1)
[2024-06-11 09:23] LABS: Alanine Aminotransferase 27 U/L (14-59); Albumin Level 3.3 g/dL (3.4-5.0); Alkaline Phosphatase 82 U/L (46-116); Anion Gap 9 mmol/L (4-12); Aspartate Amino Transferase 19 U/L (15-37); Bilirubin,Total 0.6 mg/dL (0.00-1.00); Blood Urea Nitrogen 10 mg/dL (7-18); Calcium 8.8 mg/dL (8.5-10.1); Carbon Dioxide 30 mmol/L (21-32); Chloride 101 mmol/L (98-108); Estimated CRCL calculation 76 ml/min; Estimated Glomerular Filt Rate > 60; Glucose 128 mg/dL (70-99); Osmolality Calculated 291 mOsm/kg (285-295); Potassium 3.3 mmol/L (3.5-5.1); Sodium 140 mmol/L (136-145); Troponin I < 4.0 ng/L (0.00-60.4)
[2024-06-11 09:26] LABS: D Dimer 0.33 mg/L (0.19-0.50)
--- NOTE | 2024-06-11 09:32 | PC.NURSE ---
patient back in room from ct.
[2024-06-11] MEDS: KETOROLAC 30 MG/ML VIAL (*BKC) IV PUSH (09:36)
== END 2024-06-11 10:13 | disposition home or self-care (01) ==
PROVIDERS: Emergency Provider Emergency Medicine; PCP Family Medicine
DX: R07.89 Other chest pain (principal); E87.6 Hypokalemia; I10 Essential (primary) hypertension; J44.9 Chronic obstructive pulmonary disease, unspecified; E11.9 Type 2 diabetes mellitus without complications; F17.210 Nicotine dependence, cigarettes, uncomplicated
CPT/HCPCS: 36415; 71046; 74176; 80053; 84484; 85027; 85380; 85610; 85730; 93005; 96374; 99284; J1885

== ENCOUNTER 2025-02-15 20:45 | Emergency (ER) | payer OTHER, SELFPAY ==
[2025-02-15] VITALS (11 sets, daily range): BP systolic 117–146; BP diastolic 83–101; PULSE 80–107; RESP 15–27; TEMP 37.1; O2SAT 90–100
--- NOTE | ~2025-02-15 | XR_ITS ---
CHEST RADIOGRAPH CLINICAL HISTORY: Chest pain with shortness of breath . COMPARISON: 06/11/2024 TECHNIQUE: Single portable view of the chest. FINDINGS The cardiomediastinal silhouette is unremarkable. The lungs are clear. IMPRESSION: No focal infiltrate or effusion. Reviewed, dictated and finalized at location A.
--- OUTSIDE RECORDS SUMMARY | 2025-02-15 20:51 | XMS_ITS | Clinical Summary ---
Author Organization [facility] [address] Address [address] [facility] 5th [place] [address] Care Team Providers Care Rehab Office Coordinator Name Role Phone Fransisco Nolan MD Primary Care Provider [phone] Allergies Active Allergy Reactions Criticality Noted Date Comments Metformin Diarrhea Medium 03/03/2024 Sulfa Hives Medium 03/03/2024 Medications aspirin 81 mg chewable tablet Take 1 tablet (81 mg total) by mouth daily Active escitalopram (LEXAPRO) 20 mg tablet Take 1 tablet (20 mg total) by mouth daily 90 tablet 3 4 03/03/20 25 Active amLODIPine (NORVASC) 5 mg tablet Take 1 tablet (5 mg total) by mouth daily 90 tablet 3 4 03/03/20 25 Active hydroCHLOROthia zide (HYDRODIURIL) 25 mg tablet Take 1 tablet (25 mg total) by mouth daily 90 tablet 3 4 03/03/20 25 Active potassium chloride ER 20 mEq CR tablet Take 1 tablet (20 mEq total) by mouth 2 (two) times a day 180 tablet 3 4 03/03/20 25 Active nicotine (NICODERM CQ) [address] 1 patch on the skin daily 28 patch 1 4 Active Additional Information Patient not taking.Reported on 01/26/2025 nicotine (NICODERM CQ) [address] 1 patch on the skin daily 14 patch 1 4 Active Additional Information Patient not taking.Reported on 01/26/2025 nicotine (NICODERM CQ) [address] 1 patch on the skin daily 14 patch 1 4 Active Additional Information Patient not taking.Reported on 01/26/2025 UNABLE TO FIND Take by mouth daily Med Name: Super C with vitamin D3 and zinc Active omeprazole 20 mg tablet,delayed release (DR/EC) Take by mouth as needed Active cyclobenzaprine (FLEXERIL) 5 mg tablet Take 1 tablet (5 mg total) by mouth 3 (three) times a day as needed for muscle spasms 90 tablet 4 Active buPROPion XL (WELLBUTRIN XL) 150 mg 24 hr tablet Take 1 tablet (150 mg total) by mouth every morning 90 tablet 4 4 06/28/[address] (VOLTAREN) 75 mg EC tablet TAKE 1 TABLET BY MOUTH TWICE A DAY 180 tablet 3 5 Active gabapentin (NEURONTIN) 300 mg capsule TAKE 1 CAPSULE BY MOUTH THREE TIMES A DAY 270 capsule 5 Active methylPREDNISol one (MEDROL DOSEPACK) 4 mg Dosepack Take as directed on package. 21 tablet 5 02/02/20 25 Hospital, Clinic, or Other Facility Administered Medication Ordered Dose Route Frequency Start Date End Date Status ketorolac (TORADOL) 30 mg/mL injection 30 mgIndications:Pain in other joint 30 mg IM Once 01/26/2025 01/26/2025 Ended Active Problems Problem Noted Date Diagnosed Date Fibromyalgia 06/28/2024 Assessment & Plan (01/26/2025 12:32 PM CDT): Uncontrolled; pt reports she wants to 'jump off a bridge from the pain'. She has been continuing to take diclofenac. Physical exam is pertinent for what looks like rheumatoid nodules on her bilateral hands; she states they started manifesting when she was 34 y/o. - ESR, CRP, CYNDIE, RF, anti-ccp - if positive, likely not fibromyalgia and would likely benefit from biologics and/or plant facilities technician referral - solu medrol dose pack sent - 30 mg Toradol IM injx today - Consider rheum referral if positive findings. Assessment & Plan (06/28/2024 12:00 PM CDT): Not well controlled; patient has had significant symptoms for the past several months; including multiple days of missed work Continue diclofenac 75 mg b.i.d., Lexapro 20 mg daily; was not able to tolerate amitriptyline due to excess sedation Will start cyclobenzaprine 5 mg t.i.d., bupropion 150 mg daily, gabapentin 300 mg nightly to increase to t.i.d. Will give trial of prednisone 50 mg x 1 week to help with acute inflammation Moderate episode of recurrent major depressive d isorder 06/28/2024 Assessment & Plan (06/28/2024 12:00 PM CDT): Not well controlled; patient has significant depression; appetite and sleep derangements; has multiple days and missed work; mostly related to fibromyalgia and decreased physical and ability to work Will add bupropion 150 mg daily; continue Lexapro 20 mg daily Class 2 obesity due to exces s calories without serious comorbidity with body mass index (BMI) of 38.0 to 38.9 in adult 04/24/2024 IGT (impaired glucose tolerance) 03/03/2024 Assessment & Plan (03/03/2024 2:20 PM CDT): Stable, elevated A1c around 6.5 for patient Patient reports she drinks approximately 10 sugars sweetened drinks per day Would recommend cessation or significant decrease in the amount of sugars sweetened drinks Patient has previously had severe side effects associated with metformin Will reassess at follow-up, discuss alternative treatment options if A1c remains elevated Hypokalemia 03/03/2024 Assessment & Plan (03/03/2024 2:20 PM CDT): Not well controlled; patient recently hospitalized for hypokalemia; unclear etiology; will recheck in 6 weeks after restarting hydrochlorothiazide Encourage high potassium diet Hypertension, essential 03/03/2024 Assessment & Plan (06/28/2024 12:00 PM CDT): Stable, well controlled, blood pressure at goal Continue amlodipine 5 mg daily, hydrochlorothiazide 25 mg daily Assessment & Plan (03/03/2024 2:20 PM CDT): Not well controlled, blood pressure elevated today; above goal Patient has not been taking hydrochlorothiazide Continue amlodipine 5 mg nightly, hydrochlorothiazide 25 mg daily DDD (degenerative disc disease), lumbar 03/03/20 Assessment & Plan (03/03/2024 2:21 PM CDT): Not well controlled; patient has significant low back pain, as well as reports some episodes of weakness in legs Unclear if patient has had advanced imaging Will start diclofenac 75 mg b.i.d.; continue to follow up and monitor patient develops evidence of neurogenic claudication; review previous imaging if available Interstitial cystitis 03/03/2024 Assessment & Plan (03/03/2024 2:21 PM CDT): Not well controlled; patient continues to have neck symptoms, including increased urinary frequency and incontinence versus urinary retention Patient reports previous good results with Pitocin polysorbate, however had significant visual side effects Will start amitriptyline 25 mg nightly Dyslipidemia 03/03/2024 Assessment & Plan (03/03/2024 2:21 PM CDT): Unclear etiology; patient had myalgias associated with statin therapy in the past; currently taking fish oil supplements Will recheck lipid panels and determine if patient would benefit from medical therapy Moderate tobacco use disorder 03/03/2024 Assessment & Plan (03/03/2024 2:21 PM CDT): Stable, well controlled; patient smokes about 1 pack per day; desire cessation Will start nicotine replacement therapy through patches; amitriptyline 25 mg nightly Odynophagia 03/03/2024 Assessment & Plan (03/03/2024 2:22 PM CDT): Unclear etiology; patient reports pain with swallowing; difficulty with even soft and well to foods Eats only once per day due to esophageal pain Will work on assessing other issues, will follow-up at future appointments for management Resolved Problems Problem Noted Date Diagnosed Date Resolved Date Hypertension associated with diabetes 03/03/2024 03/03/2024 Encounters Date Type Department Care Team Description 01/30/2025 8:15 AM CDT [facility] [address] [place] [address] Pain in other joint 01/30/2025 Results Follow-Up [facility] [address] [place] [phone] Talha Arauz MD Erythrocyte sedimentation rate, CRP (acute phase), Rheumatoid factor, Additional followed-up results: 2 01/26/2025 10:00 AM CDT Office Visit [facility] at [address] [place] [phone] Talha Arauz MD Fibromyalgia (Primary Dx); Pain in other joint 01/26/2025 Orders Only [facility] at [address] [place] [phone] Talha Arauz MD Pain in other joint (Primary Dx) 01/24/2025 Telephone [facility] of [address] [address] Fransisoc Nolan MD Forms Request from Last 3 Months Immunizations Immunization Administration Dates Next Due Influenza, Unspecified 06/28/2024(Deferred: Karma ent Refused) Surgical History Surgery Date Site/Laterality Comments CARPAL TUNNEL RELEASE Bilateral CATARACT EXTRACTION, BILATERAL RETINAL DETACHMENT SURGERY Left NOSE SURGERY TONSILECTOMY, ADENOIDECTOMY, BILATERAL MYRINGOTOMY AND TUBES Family History Medical History Relation Name Comments Diabetes Brother ESKD Requiring Dialysis Brother Dementia Father colon disease Mother Lung cancer Sister 1 Breast cancer Sister 2 Skin cancer Sister 2 Relation Name Status Comments Brother Father Mother Sister 1 Sister 2 Social History Tobacco Use Types Packs/Day Years Used Date Smoking Tobacco: Every Day Cigarettes 0.1 31 Started: 03/03/1994 Smokeless Tobacco: Never Tobacco Cessation:Ready to Q uit: Not Asked; Counseling Given: Not Answered AUDIT-C Answer Date Recorded Q1: How often do you have a drink containing alcohol? Never 01/26/2025 Q2: How many drinks containi ng alcohol do you have on a typical day when you are drinking? Patient does not drink Q3: How often do you have si x or more drinks on one occasion? 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 Gender Identity Not on file Sexual Orientation Not on file Obstetrics History Last Filed Vital Signs Vital Sign Reading Time Taken Comments Blood Pressure 138/76 01/26/2025 10:16 AM CDT Pulse 69 01/26/2025 10:16 AM CDT Temperature 36.9 C (98.5 F) 06/28/2024 8:35 AM CDT Respiratory Rate 18 01/26/2025 10:16 AM CDT Oxygen Saturation 96% 01/26/2025 10:16 AM CDT Inhaled Oxygen Concentration - - Weight 101.2 kg (223 lb) 01/26/2025 10:16 AM CDT Height 157.5 cm (5' 2.01) 01/26/2025 10:16 AM C DT Body Mass Index 40.78 01/26/2025 10:16 AM CDT Plan of Treatment Health Maintenance Due Date Last Done Comments Breast Cancer Screening-Mammogram 1969 Cervical Cancer Screening 1969 Colon Cancer Screening-Colonoscopy 1969 DTaP/Tdap/Td Vaccine (1 - Tdap) 1980 Regular Well Visit/Exam 18-64 12/20/1987 Pneumococcal vaccine <65 (1 of 2 - PCV) 1988 Zoster Vaccine (1 of 2) 12/20/2019 Influenza Vaccine (Season Ended) 2025 Depression Screening 01/26/2026 01/26/2025, 01/26/2025, 03/03/2024, Additional history exists Hepatitis B Screening Completed 06/28/2024 Hepatitis C Screening Completed 06/28/2024 Procedures Procedure Name Priority Date/Time Associated Diagnosis Comments CYNDIE QUALITATIVE WITH REFLEX TO CYNDIE QUANTITATIVE Routine 01/30/2025 8:17 AM CDT Pain in other joint CYCLIC CITRUL PEPTIDE ANTIBODY, IGG Routine 01/30/2025 8:17 AM CDT Pain in other joint RHEUMATOID FACTOR Routine 01/30/2025 8:1 7 AM CDT Pain in other joint CRP (ACUTE PHASE) Routine 01/30/2025 8:1 7 AM CDT Pain in other joint ERYTHROCYTE SEDIMENTATION RATE Routine 01/30/2025 8:17 AM CDT Pain in other joint HEPATITIS C ANTIBODY Routine 06/28/2024 9:21 AM CDT Encounter for hepatitis C screening test for low risk patient from Last 3 Months or Most Recently Relevant to Health Maintenance Results * CYNDIE ab ql w/rflx to CYNDIE qn (01/30/2025 8:17 AM CDT) CYNDIE Negative Comment: Interpretive Data Normal range for CYNDIE Qualitative Antibody = Negative. 1. CYNDIE is performed using indirect immunofluorescence against HEp-2 cells 2. CYNDIE titers are performed on all positive qualitative results. 3. A significantly positive CYNDIE result is defined as a positive nuclear fluorescence at a titer of 1:80 or greater. 4. 15% of normal people above age 65 have significantly positive CYNDIE results. 5% or less of normal people age 65 or under have significantly positive CYNDIE results. Current interpretive data was last revised on 2020. Testing performed by: [facility], [address] [place] [address], [place] [address] Blood 01/30/2025 8:17 AM CDT 01/30/2025 4:09 PM CDT us Talha Arauz MD LAB BLOOD ORDERABLES Final R esult [facility] [place]) 1 [facility] Department [place] [address] * Cyclic citrul peptide antibody, IgG (01/30/2025 8:17 AM CDT) CCP Ab <0.5 <=2.9 units/mL Comment: Interpretive data Negative: <3 units/mL Positive: > or equal to 3 units/mL Current interpretive data was last revised on 2016. Testing performed by: [facility], [address] [place] [address] [place]., [address] Blood 01/30/2025 8:17 AM CDT 01/30/2025 4:09 PM CDT Talha Arauz MD LAB BLOOD ORDERABLES Final R esult [facility] ([place]) 1 [facility] [place] [address] * Erythrocyte sedimentation rate (01/30/2025 8:17 AM CDT) Erythrocyte sedimentation rate 10 1 - 30 mm/hr Blood 01/30/2025 8:17 AM CDT 01/30/2025 1:50 PM CDT Talha Arauz MD LAB BLOOD ORDERABLES Final R esult Performing Organization Address [facility] de Phone Number [facility] ([place]) 1 [place] [address] * Rheumatoid factor (01/30/2025 8:17 AM CDT) Rheumatoid factor, quant <10 <=15 IUnits/mL Comment:Testing performed by : [address], [address] Blood 01/30/2025 8:17 AM CDT 01/30/2025 1:50 PM CDT Talha Arauz MD LAB BLOOD ORDERABLES Final R esult Performing Organization Address [facility] Co de Phone Number [facility] ([place] 1 [place] [address] * CRP (acute phase) (01/30/2025 8:17 AM CDT) CRP <3.0 <=10.0 mg/L Comment:Testing performed by : [facility], [address] [place] [address], [address] Blood 01/30/2025 8:17 AM CDT 01/30/2025 1:50 PM CDT Talha Arauz MD LAB BLOOD ORDERABLES Final R esult [facility] ([place]) 1 [facility] Department [place] [address] * Hepatitis C antibody Blood (06/28/2024 9:21 AM CDT) Hep C Ab Nonreactive Nonreactive Comment: Interpretive Data Nonreactive: Antibodies to HCV not detected. Does NOT exclude the possibility of recent exposure to HCV. Equivocal: Equivocal for HCV antibodies. Supplemental molecular testing will be automatically performed to determine infection status in accordance with current CDC screening recommendations. Reactive: Positive for HCV antibodies. This may represent current or past HCV infection. Supplemental molecular testing will be automatically performed to determine current infection status in accordance with current CDC screening recommendations. Interpretive data was last revised on 2019. Testing performed by: [facility], [address] [place] [address], [facility] Blood 06/28/2024 9:21 AM CDT 06/28/2024 3:05 PM CDT us Fransisco Nolan MD LAB MICROBIOLOGY - GENERA L ORDERABLES Final Result Performing Organization Address City/[facility]/ZIP Co de Phone Number [facility] 1 [facility] Department [place] [address] from Last 3 Months or Most Recently Relevant to Health Maintenance Insurance [facility] CHOICE PLUS Care Teams Rehab Office Coordinator Relationship Specialty Start Date End Date Fransisco Nolan MD [address] [place] [address] PCP - General Family Medicine 03/03/24
--- OUTSIDE RECORDS SUMMARY | 2025-02-15 20:51 | XMS_ITS | Encounter Summary ---
Author Organization [facility] Healthcare Address [address] [place] [address] Care Team Providers Care Data Entry Associate Name Role Phone Fransisco Nolan MD Primary Care Provider [phone] Reason for Visit * Reason Onset Date Comments Forms Request 01/24/2025 Encounter Details Date Type Department Care Team (Late st Contact Info) Description 01/24/2025 Telephone [facility] [address] [facility] [place] [address] Fransisco Nolan MD [address] [place] [address] Forms Request Social History Tobacco Use Types Packs/Day Years Used Date Smoking Tobacco: Every Day Cigarettes 0.1 31 Started: 03/03/1994 Smokeless Tobacco: Never AUDIT-C Answer Date Recorded Q1: How often [...] on file 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 Never 01/26/2025 10:16 AM Annalisa Orozco MA Q2: How many drinks containing alcohol do you have on a typical day when you are drinking? Patient does not drink 01/26/2025 10:16 AM Consuelo Orozco MA Q3: How often do you have six or more drinks on one occasion? Never 01/26/2025 10:16 AM Annalisa Orozco MA documented as of this encounter Miscellaneous Notes * Telephone Encounter - KruegerMushtaq caal - 01/24/2025 12:56 PM CDT Forms Request Form requested: New FMLA/Disability Form Date needed: 01/31/25 Additional Comments: pt is going to be emailing over to the email she was using in the fall, FMLA paperwork. MOTOR OPERATOR informed pt she will need an appointment and transferred her to assist line to schedule. Does message need to be routed? Yes-FYI Only documented in this encounter Plan of Treatment Not on file documented as of this encounter Visit Diagnoses Not on filedocumented in this encounter Care Teams Data Entry Associate Relationship Specialty Start Date End [place] [address] PCP - General Family Medicine 03/03/24 documented as of this encounter
--- OUTSIDE RECORDS SUMMARY | 2025-02-15 20:51 | XMS_ITS | Referral Summary ---
Author Organization [facility] [place] [address] Address [address] [facility] 5th [place] [address] Care Team Providers Care Forensic Medical Examiner Name Role Phone Fransisco Nolan MD Primary Care Provider [phone] Encounters Date Type Department Care Team Description 01/30/2025 Results Follow-Up [facility] Hospitalists [address] [place] [phone] Talha Arauz MD Erythrocyte sedimentation rate, CRP (acute phase), Rheumatoid factor, Additional followed-up results: 2 01/30/2025 8:15 AM CDT Lab [facility] [address] [place] [phone] Pain in other joint 01/26/2025 Orders Only [facility] at [address] [phone] Talha Arauz MD Pain in other joint (Primary Dx) 01/26/2025 10:00 AM CDT Office Visit [facility] at [address] [phone] Talha Arauz MD Fibromyalgia (Primary Dx); Pain in other joint 01/24/2025 Telephone [facility] [address] [place] [address] Fransisco Nolan MD Forms Request from Last 3 Months Allergies Active Allergy Reactions Criticality Noted Date [...] and would likely benefit from biologics and/or head coach referral - solu medrol dose pack sent [...] Date Hypertension associated with diabetes 03/03/2024 03/03/2024 Immunizations Immunization Administration Dates Next Due Influenza, Unspecified 06/28/2024(Deferred: Karma ent Refused) Social History Tobacco Use Types Packs/Day Years [...] on file 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 Testing performed by: [facility], [address] [place]., [address] Blood 01/30/2025 8:17 AM CDT 01/30/2025 4:09 PM CDT Talha Arauz MD LAB BLOOD ORDERABLES Final R esult [facility] ([place]) 1 [facility] [place] [address] * Cyclic citrul peptide antibody, IgG (01/30/2025 8:17 AM CDT) CCP Ab <0.5 <=2.9 units/mL Comment: Interpretive data Negative: <3 units/mL Positive: > or equal to 3 units/mL Current interpretive data was last revised on 2016. Testing performed by: [facility], [address] [place]., [address] Blood 01/30/2025 8:17 AM CDT 01/30/2025 4:09 PM CDT Talha Arauz MD LAB BLOOD ORDERABLES Final R esult Performing Organization Address City/[facility]/ZIP Co de Phone Number [facility] ([place] 1 [facility] [place] [address] * Erythrocyte sedimentation rate (01/30/2025 8:17 AM CDT) Erythrocyte sedimentation rate 10 1 - 30 mm/hr Blood 01/30/2025 8:17 AM CDT 01/30/2025 1:50 PM CDT Talha Arauz MD LAB BLOOD ORDERABLES Final R esult [facility] ([place] 1 [facility] [place] [address] * Rheumatoid factor (01/30/2025 8:17 AM CDT) [facility] Rheumatoid factor, quant <10 <=15 IUnits/mL Comment:Testing performed by : [address] [address] Blood 01/30/2025 8:17 AM CDT 01/30/2025 1:50 PM CDT Talha Arauz MD LAB BLOOD ORDERABLES Final R esult Performing Organization Address City/[facility]/ZIP Co de Phone Number [facility] 1 [facility] [place] [address] * CRP (acute phase) (01/30/2025 8:17 AM CDT) [facility] CRP <3.0 <=10.0 mg/L Comment:Testing performed by : [address] [address] Blood 01/30/2025 8:17 AM CDT 01/30/2025 1:50 PM CDT Talha Arauz MD LAB BLOOD ORDERABLES Final R esult Performing Organization Address City/[facility]/ZIP Co de Phone Number [facility] ([place] 1 [facility] [place] [address] * Hepatitis C antibody Blood (06/28/2024 9:21 AM CDT) [facility] Hep C Ab Nonreactive Nonreactive Comment: Interpretive [...] last revised on 2019. Testing performed by: [address] [place] [address] Blood 06/28/2024 9:21 AM CDT 06/28/2024 3:05 PM CDT Fransisco Nolan MD LAB MICROBIOLOGY - GENERA L ORDERABLES Final Result [facility] 1 [facility] Department [place] [address] from Last 3 Months or Most Recently Relevant to Health Maintenance Insurance [facility] CHOICE PLUS Care Teams Forensic Medical Examiner Relationship Specialty Start Date End [place] [address] PCP - General Family Medicine 03/03/24
--- NOTE | 2025-02-15 20:52 | ECG_ITS ---
Test Date: 2025-02-15 21:05:10 Measurements Intervals Dexter Rate: 80 P: 69 NM: 193 QRS: -27 QRSD: 94 T: 43 QT: 404 QTc: 469 Interpretive Statements SINUS RHYTHM LOW QRS VOLTAGE IN PRECORDIAL LEADS CANNOT R/O SEPTAL INFARCT, AGE INDETERMINATE ANTEROLATERAL ST ELEVATION MYOCARDIAL INJURY- ACUTE RECIPROCAL ST DEPRESSION IN INFERIOR LEADS BASELINE ARTIFACT- I, II, III, AVL, V4-V6 ABNORMAL ECG Compared to ECG 06/11/2024 08:52:58 Electronically Signed On 02-16-2025 07:20:41 CDT by Sanchez Woodruff D.O.
[2025-02-15] MEDS: NITROGLYCERIN SL 0.4 MG TABLET SUBLINGUAL (20:53)
[2025-02-15] MEDS: ONDANSETRON INJ 4 MG/2 ML VIAL IV PUSH (20:55)
[2025-02-15] MEDS: MORPHINE SULFATE (*CRX) 4 MG/ML INJ IV PUSH (20:57)
[2025-02-15] MEDS: HEPARIN SODIUM 5,000 UNITS/ML VIAL 4000 UNITS IV PUSH (20:58)
[2025-02-15 21:00] LABS: Basophils Percent Auto 0.6 % (0.0-1.0); Eosinophils Absolute Auto 0.42 K/mm3 (0.02-0.50); Eosinophils Percent Auto 2.4 % (1.0-6.0); Hematocrit 44.1 % (35.0-49.0); Hemoglobin 15.1 g/dL (12.0-15.0); Immature Granulocyte Absolute 0.06 K/mm3 (0.00-0.00); Immature Granulocyte Percent A 0.3 % (0.0-0.0); Lymphocytes Absolute Auto 7.64 K/mm3 (1.10-4.50); Lymphocytes Percent Auto 44.5 % (18.0-42.0); Mean Corpuscular HGB Conc 34.2 g/dL (32-36); Mean Corpuscular Hemoglobin 31.8 pg (27.0-31.0); Mean Corpuscular Volume 92.8 fL (78.0-102.0); Mean Platelet Volume 9.2 fl (9.2-11.8); Monocytes Absolute Auto 0.98 K/mm3 (0.10-0.90); Monocytes Percent Auto 5.7 % (2.0-11.0); Neutrophils Absolute Auto 7.95 K/mm3 (1.70-7.20); Neutrophils Percent Auto 46.5 % (50.0-70.0); Platelet Count Result 413 K/mm3 (150-420); Red Blood Count 4.75 M/mm3 (4.20-5.40); Red Cell Distribution Width 12.6 % (11.6-14.4); White Blood Count 17.2 K/mm3 (4.8-10.8)
[2025-02-15] MEDS: ASPIRIN 81 MG CHEWABLE TABLET 324 MG PO (21:00)
[2025-02-15 21:07] LABS: Alanine Aminotransferase 23 U/L (6-35); Albumin Level 4.2 g/dL (3.5-5.1); Alkaline Phosphatase 71 U/L (38-126); Anion Gap 8 mmol/L (4-12); Aspartate Amino Transferase 28 U/L (14-36); Bilirubin,Total 0.4 mg/dL (0.2-1.3); Blood Urea Nitrogen 22 mg/dL (7-17); Calcium 9.1 mg/dL (8.4-10.2); Carbon Dioxide 23 mmol/L (22-30); Chloride 108 mmol/L (98-107); Estimated CRCL calculation 80 ml/min; Estimated Glomerular Filt Rate > 60; Glucose 150 mg/dL (65-110); Lipase 140 U/L (23-300); Osmolality Calculated 294 mOsm/kg (285-295); Potassium 3.4 mmol/L (3.4-5.0); Sodium 139 mmol/L (137-145); Total Protein 7.1 g/dL (6.3-8.2)
--- NOTE | 2025-02-15 21:08 | ED_ITS ---
HPI - Chest Pain General Chief Complaint: Chest Pain Stated Complaint: Chest Pain Time Seen by Provider: 02/15/25 20:50 Source: patient Mode of arrival: ambulatory Limitations: no limitations History of Present Illness HPI narrative: this is a 54-year-old female with a history of hyperlipidemia, hypertension and smoking history presents with some chest pain midsternal with no radiation does have diaphoresis and shortness of breath with nausea with currently no vomiting started earlier this afternoon patient is unable to give an accurate time of when symptoms started felt like she was having indigestion and as the day progressed just continued to be persistent and getting worse. complaint: chest pain and chest heaviness Onset (ago): hour(s) Timing of current episode: constant Prior episodes: No Onset: during rest Pain location: substernal Pain radiation: none Severity: severe Pain scale (0-10): 9 Quality: tightness and heaviness Relieving factors: nitroglycerin Related Data Home Medications ?Medication ?Instructions ?Recorded ?Confirmed ?Last Taken ?Type hydrochlorothiazide 25 mg tablet 25 mg PO DAILY 02/15/24 Unknown History omeprazole 20 mg capsule,delayed 20 mg PO DAILY 02/15/24 Unknown History release diclofenac sodium 75 mg 75 mg PO DAILY PRN pain 02/19/24 Unknown History tablet,delayed release pentosan polysulfate sodium 100 mg 100 mg PO TID 02/19/24 Unknown History capsule (Elmiron) Allergies Allergy/AdvReac Type Severity Reaction Status Date / Time Sulfa (Sulfonamide Allergy Hives Verified 06/11/24 08:50 Antibiotics) Review of Systems 2 Review of Systems: All systems reviewed & are unremarkable except as noted in HPI and below PMFSH Past Medical History Medical History Chronic back pain Nicotine dependence History of DVT (deep vein thrombosis) History of pulmonary embolism Arthritis Interstitial cystitis Hypertension Depression Degenerative disk disease Diabetes mellitus type II, uncontrolled Fibromyalgia Retinal detachment of right eye due to tear of retina Acute hypokalemia Pneumonia COPD (chronic obstructive pulmonary disease) Surgical History Surgical History History of ear, nose, and throat (ENT) surgery Hx of tonsillectomy History of carpal tunnel surgery of right wrist History of carpal tunnel surgery of left wrist History of cataract surgery Family History Family History Sibling Breast cancer Hypertension Diabetes mellitus Mother Hypokalemia Hypertension Sibling Bipolar disorder Sibling Liver failure Breast cancer Father Dementia Social History Social History Smoking packs per day: 1 Smoking cigarettes per day: 20.0 Years smoked: 30 Smoking pack-years: 30.00 Smoking status: Current every day smoker Tobacco type: cigarettes Smokeless tobacco user: chewing tobacco Second hand tobacco smoke exposure: No Alcohol intake: never Alcohol use details: reports social drinker, none currently Substance use: former Substance use type: marijuana Do You Feel Safe in your Home?: Yes Lack of Transportation: No Lack of Food: Never True Current Housing: I Have Housing Concerned About Future Housing: No Difficulty Paying Gas/Electric Bills: No Difficulty Paying for Meds: No Currently Unemployed: No Education: High School Diploma/GED Difficulty w/ Childcare or Family Care: No Living arrangements: with friend(s) Occupation/Education: unemployed Gender identity (if verbalized by the patient): Female Sexual Orientation (if Verbalized by the Patient): Straight or Heterosexual Spiritual care concerns: No Exam 2 Const: General: cooperative, no acute distress and anxious Nutritional Appearance: average body habitus, well nourished and cachectic O rientation/consciousness: oriented to person, oriented to place, oriented to time and patient oriented x3 HENMT: Head: normal to inspection Face and sinus: normal facial exam M outh: Yes Normal oral and palatal mucosa present Neck: Neck: normal visual inspection, full ROM, no lymphadenopathy and no meningeal signs Chest: Chest palpation & inspection: normal inspection of the chest and normal palpation of entire chest wall Resp: Effort & Inspection: normal respiratory effort and able to speak in complete sentences Cardio: Jugular venous distension: no JVD Palpation: normal PMI Rate: r egular rate Rhythm: regular rhythm Heart sounds: S1 normal heart sound present and S2 normal heart sound present GI: Inspection: normal to inspection : General: Yes bimanual renal exam normal bilaterally Skin: General skin exam: normal color and no rashes or lesions noted Neuro: General: oriented to person, oriented to place, oriented to time, patient oriented x3 and gait normal Extrem: General: normal to inspection, full ROM, capillary refill normal and normal exam except as noted Course Course Emergency Course: Patient patient is a 54-year-old smoker with hypertension Vital Signs Vital signs: Vital Signs Temperature 37.1 C 02/15/25 20:45 Pulse Rate 80 02/15/25 20:45 Respiratory Rate 22 H 02/15/25 20:45 Blood Pressure 146/100 H 02/15/25 20:45 Pulse Oximetry 95 02/15/25 20:45 Oxygen Delivery Room Air 02/15/25 20:45 Temperature 37.1 C 02/15/25 20:45 Pulse Rate 81 02/15/25 21:28 Respiratory Rate 20 02/15/25 21:28 Blood Pressure 117/83 02/15/25 21:28 Pulse Oximetry 96 02/15/25 21:28 Oxygen Delivery Nasal Cannula 02/15/25 21:28 Oxygen Flow Rate 2 02/15/25 21:28 MDM - Chest Pain Lab Data 02/15/25 20:57 02/15/25 20:57 Labs: Lab Results 02/15/25 02/15/25 Range/Units 20:57 21:28 WBC 17.2 H (4.8-10.8) K/mm3 RBC 4.75 (4.20-5.40) M/mm3 Hgb 15.1 H (12.0-15.0) g/dL Hct 44.1 (35.0-49.0) % MCV 92.8 (78.0-102.0) fL MCH 31.8 H (27.0-31.0) pg MCHC 34.2 (32-36) g/dL RDW 12.6 (11.6-14.4) % Plt Count 413 (150-420) K/mm3 MPV 9.2 (9.2-11.8) fl Immature Gran % (Auto) 0.3 H (0.0-0.0) % Neut % (Auto) 46.5 L (50.0-70.0) % Lymph % (Auto) 44.5 H (18.0-42.0) % Maury % (Auto) 5.7 (2.0-11.0) % Eos % (Auto) 2.4 (1.0-6.0) % Baso % (Auto) 0.6 (0.0-1.0) % Lymph # (Auto) 7.64 H (1.10-4.50) K/mm3 Maury # (Auto) 0.98 H (0.10-0.90) K/mm3 Eos # (Auto) 0.42 (0.02-0.50) K/mm3 Baso # (Auto) 0.10 (0.00-0.10) K/mm3 Abs Immat Gran (auto) 0.06 H (0.00-0.00) K/mm3 Absolute Neuts (auto) 7.95 H (1.70-7.20) K/mm3 Absolute Nucleated RBC 0.00 (0.00-0.00) K/mm3 Nucleated RBC % 0.0 (0-0.0) % PT 10.1 (9.50-12.1) Seconds INR 0.9 APTT 22.0 L (23.9-30.70) Sec D-Dimer 0.62 H (0.19-0.50) mg/L Sodium 139 (137-145) mmol/L Potassium 3.4 (3.4-5.0) mmol/L Chloride 108 H (98-107) mmol/L Carbon Dioxide 23 (22-30) mmol/L Anion Gap 8 (4-12) mmol/L BUN 22 H (7-17) mg/dL Creatinine 0.77 (0.7-1.0) mg/dL Estim Creat Clear Calc 80 ml/min Estimated GFR > 60 (59 - ) Glucose 150 H (65-110) mg/dL Calculated Osmolality 294 (285-295) mOsm/kg Calcium 9.1 (8.4-10.2) mg/dL Total Bilirubin 0.4 (0.2-1.3) mg/dL AST 28 (14-36) U/L ALT 23 (6-35) U/L Alkaline Phosphatase 71 (38-126) U/L Troponin I < 0.012 (0.000-0.034) ng/mL NT-Pro-B Natriuret Pep < 20 (19.9-100) pg/mL Total Protein 7.1 (6.3-8.2) g/dL Albumin 4.2 (3.5-5.1) g/dL Lipase 140 (23-300) U/L Discharge Plan Discharge Clinical Impression: ST elevation (STEMI) myocardial infarction Qualifiers: Involved coronary artery: unspecified coronary artery Qualified Code(s): I21.3 - ST elevation (STEMI) myocardial infarction of unspecified site Patient Disposition: Acute Care Hospital Condition: Guarded Prognosis Patient Language: Djiboutian Prescriptions: No Action amlodipine [Norvasc] 5 mg tablet 5 mg PO DAILY Qty: 30 0RF ipratropium-albuterol 0.5 mg-3 mg(2.5 mg base)/3 mL solution for nebulization 3 ml inhalation QID PRN (Reason: shortness of breath or wheezing) Qty: 90 0RF potassium chloride 20 mEq tablet,ER particles/crystals 20 meq PO DAILY 15 Days Qty: 15 0RF albuterol sulfate 90 mcg/actuation HFA aerosol inhaler 2 puff inhalation QID PRN (Reason: shortness of breath or wheezing) Qty: 6.7 0RF tramadol 50 mg tablet 50 mg PO TID PRN (Reason: pain) Qty: 12 0RF omeprazole 20 mg capsule,delayed release(DR/EC) 20 mg PO DAILY hydrochlorothiazide 25 mg tablet 25 mg PO DAILY escitalopram oxalate 20 mg tablet 20 mg PO DAILY Qty: 30 0RF aspirin [Adult Low Dose Aspirin] 81 mg tablet,delayed release (DR/EC) 81 mg PO DAILY Qty: 30 2RF Rx Instructions: take with food Elmiron 100 mg capsule 100 mg PO TID diclofenac sodium 75 mg tablet,delayed release (DR/EC) 75 mg PO DAILY PRN (Reason: pain) Follow-up/Referrals: An,MD Fransisco [Primary Care Provider] - Time of Disposition: 21:20
[2025-02-15 21:09] LABS: D Dimer 0.62 mg/L (0.19-0.50); INR 0.9; Prothrombin Time 10.1 Seconds (9.50-12.1)
--- NOTE | 2025-02-15 21:11 | PC.NURSE ---
Protocol initiated for STEMI and pt will go to [place], awaiting call back from coffee grinder and awaiting EMS for transfer.
[2025-02-15 21:16] LABS: NT Pro B Type Natriuretic Pept < 20 pg/mL (19.9-100)
[2025-02-15] MEDS: HEPARIN SOD/D5W 100 UNITS/ML 25,000 UNITS/250 ML BAG 8 UNITS IV CONT (21:21)
--- NOTE | 2025-02-15 21:22 | PC.NURSE ---
Pt assisted to cot and report given to [facility] for transfer to [place].
[2025-02-15 21:32] LABS: Troponin I < 0.012 ng/mL (0.000-0.034)
== END 2025-02-15 21:28 | disposition short-term general hospital (02) ==
PROVIDERS: Emergency Provider Emergency Medicine; PCP Hospitalist
DX: I21.3 ST elevation (STEMI) myocardial infarction of unspecified site (principal); E78.5 Hyperlipidemia, unspecified; I10 Essential (primary) hypertension; J44.9 Chronic obstructive pulmonary disease, unspecified; E11.9 Type 2 diabetes mellitus without complications; F17.210 Nicotine dependence, cigarettes, uncomplicated; Z86.718 Personal history of other venous thrombosis and embolism
CPT/HCPCS: 36415; 71045; 80053; 83690; 83880; 84484; 85025; 85380; 85610; 85730; 93005; 96365; 96375; 99285; A9270; J1644; J2270; J2405

== ENCOUNTER 2025-02-15 22:06 | Inpatient (IN) | payer OTHER, SELFPAY ==
--- OUTSIDE RECORDS SUMMARY | 2025-02-15 22:09 | XMS_ITS | Referral Summary ---
Author Organization [facility] [address] Address [address] [facility] 5th [place] [address] Care Team Providers Care Taproom Attendant Name Role Phone Fransisco Nolan MD Primary Care Provider [phone] Encounters Date Type Department Care Team Description 01/30/2025 Results Follow-Up [facility] Hospitalists [address] [place] [phone] Talha Arauz MD Erythrocyte sedimentation rate, CRP (acute phase), Rheumatoid factor, Additional followed-up results: 2 01/30/2025 8:15 AM CDT Lab [facility] [address] [place] [phone] Pain in other joint 01/26/2025 Orders Only [facility] at [address] [phone] Talha Arauz MD Pain in other joint (Primary Dx) 01/26/2025 10:00 AM CDT Office Visit [facility] at [address] [phone] Talha Arauz MD Fibromyalgia (Primary Dx); Pain in other joint 01/24/2025 Telephone [facility] [address] [place] [address] Fransisco Nolan MD Forms Request [...] and would likely benefit from biologics and/or enterprise systems engineer referral - solu medrol dose pack sent [...] on file 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 Testing performed by: [facility], [address] [place] [address] Blood 01/30/2025 8:17 AM CDT 01/30/2025 4:09 PM CDT Talha Arauz MD LAB BLOOD ORDERABLES Final R esult [facility] ([place]) 1 [facility] [employer] [place] [address] * Cyclic citrul peptide antibody, IgG (01/30/2025 8:17 AM CDT) CCP Ab <0.5 <=2.9 units/mL Comment: Interpretive data Negative: <3 units/mL Positive: > or equal to 3 units/mL Current interpretive data was last revised on 2016. Testing performed by: [facility], [address] [place]., [address] Blood 01/30/2025 8:17 AM CDT 01/30/2025 4:09 PM CDT Talha Arauz MD LAB BLOOD ORDERABLES Final R esult Performing Organization Address City/[facility]/ZIP Co de Phone Number [facility] ([place]) 1 [facility] [place] [address] * Erythrocyte sedimentation rate (01/30/2025 8:17 AM CDT) Erythrocyte sedimentation rate 10 1 - 30 mm/hr Blood 01/30/2025 8:17 AM CDT 01/30/2025 1:50 PM CDT Talha Arauz MD LAB BLOOD ORDERABLES Final R esult [facility] ([place]) 1 [facility] [employer] [place] [address] * Rheumatoid factor (01/30/2025 8:17 AM CDT) [facility] Rheumatoid factor, quant <10 <=15 IUnits/mL Comment:Testing performed by : [address] [address] Blood 01/30/2025 8:17 AM CDT 01/30/2025 1:50 PM CDT Talha Arauz MD LAB BLOOD ORDERABLES Final R esult Performing Organization Address City/[facility]/ZIP Co de Phone Number [facility] ([place]) 1 [facility] [place] [address] * CRP (acute phase) (01/30/2025 8:17 AM CDT) [facility] CRP <3.0 <=10.0 mg/L Comment:Testing performed by : [address] [address] Blood 01/30/2025 8:17 AM CDT 01/30/2025 1:50 PM CDT Talha Arauz MD LAB BLOOD ORDERABLES Final R esult Performing Organization Address City/[facility]/ZIP Co de Phone Number [facility] ([place]) 1 [facility] [place] [address] * Hepatitis C antibody Blood (06/28/2024 9:21 AM CDT) [facility] Hep C Ab Nonreactive Nonreactive Comment: Interpretive [...] last revised on 2019. Testing performed by: [address] [place] [address] Blood 06/28/2024 9:21 AM CDT 06/28/2024 3:05 PM CDT Fransisco Nolan MD LAB MICROBIOLOGY - GENERA L ORDERABLES Final Result [facility] ([place]) 1 [facility] [place] [address] from Last 3 Months or Most Recently Relevant to Health Maintenance Insurance [facility] CHOICE PLUS Care Teams Taproom Attendant Relationship Specialty Start Date End [place] [address] PCP - General Family Medicine 03/03/24
--- OUTSIDE RECORDS SUMMARY | 2025-02-15 22:09 | XMS_ITS | Encounter Summary ---
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 INVESTIGATOR [employer] informed pt she will need an appointment and transferred her to assist line to schedule. Does message need to be routed? Yes-FYI Only documented in this encounter Plan of Treatment Not on file documented as of this encounter Visit Diagnoses Not on filedocumented in this encounter Care Teams Biomass Technician Relationship Specialty Start Date [place] [address] PCP - General Family Medicine 03/03/24 documented as of this encounter
--- OUTSIDE RECORDS SUMMARY | 2025-02-15 22:09 | XMS_ITS | Clinical Summary ---
Author Organization [facility] [address] Address [address] [facility] 5th [place] [address] Care Team Providers Care Turner Off Name Role Phone Fransisco Nolan MD Primary Care Provider [phone] Allergies Active Allergy Reactions Criticality Noted Date [...] and would likely benefit from biologics and/or sueding machine operator referral - solu medrol dose pack sent [...] Care Team Description 01/30/2025 8:15 AM CDT [facility] [address] [place] [phone] Pain in other joint 01/30/2025 Results Follow-Up [facility] Hospitalists [address] [place] [phone] Talha Arauz MD Erythrocyte sedimentation rate, CRP (acute phase), Rheumatoid factor, Additional followed-up results: 2 01/26/2025 10:00 AM CDT Office Visit [facility] at [address] [place] [phone] Talha Arauz MD Fibromyalgia (Primary Dx); Pain in other joint 01/26/2025 Orders Only [facility] at [address] [place] [phone] Talha Arauz MD Pain in other joint (Primary Dx) 01/24/2025 Telephone [facility] [address] [phone] Fransisco Nolan MD Forms Request from [...] on file 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 Testing performed by: [facility], [address] [place] [address], [place]., [address] Blood 01/30/2025 8:17 AM CDT 01/30/2025 4:09 PM CDT us Talha Arauz MD LAB BLOOD ORDERABLES Final R esult [facility] [place]) 1 [facility] Department [place] [address] * Cyclic citrul peptide antibody, IgG (01/30/2025 8:17 AM CDT) CCP Ab <0.5 <=2.9 units/mL Comment: Interpretive data Negative: <3 units/mL Positive: > or equal to 3 units/mL Current interpretive data was last revised on 2016. Testing performed by: [facility], [address] [place] [address] [place]., [address] Blood 01/30/2025 8:17 AM CDT 01/30/2025 4:09 PM CDT Talha Arauz MD LAB BLOOD ORDERABLES Final R esult [facility] ([place]) 1 [facility] [place] [address] * Erythrocyte sedimentation rate (01/30/2025 8:17 AM CDT) Erythrocyte sedimentation rate 10 1 - 30 mm/hr Blood 01/30/2025 8:17 AM CDT 01/30/2025 1:50 PM CDT Talha Arauz MD LAB BLOOD ORDERABLES Final R esult Performing Organization Address [facility] de Phone Number [facility] ([place]) [address] [place] [address] * Rheumatoid factor (01/30/2025 8:17 AM CDT) Rheumatoid factor, quant <10 <=15 IUnits/mL Comment:Testing performed by : [address], [address] Blood 01/30/2025 8:17 AM CDT 01/30/2025 1:50 PM CDT Talha Arauz MD LAB BLOOD ORDERABLES Final R esult Performing Organization Address [facility] Co de Phone Number [facility] ([place]) [address] [place] [address] * CRP (acute phase) (01/30/2025 8:17 AM CDT) CRP <3.0 <=10.0 mg/L Comment:Testing performed by : [facility], [address] [place] [address], [address] Blood 01/30/2025 8:17 AM CDT 01/30/2025 1:50 PM CDT Talha Arauz MD LAB BLOOD ORDERABLES Final R esult [facility] ([place]) 1 [facility] Department [place] [address] * Hepatitis C antibody Blood (06/28/2024 9:21 [...] last revised on 2019. Testing performed by: [facility], [address] [place] [address], [facility] Blood 06/28/2024 9:21 AM CDT 06/28/2024 3:05 PM CDT us Fransisco Nolan MD LAB MICROBIOLOGY - GENERA L ORDERABLES Final Result Performing Organization Address City/[facility]/ZIP Co de Phone Number [facility] ([place]) 1 [facility] Department [place] [address] from Last 3 Months or Most Recently Relevant to Health Maintenance Insurance [facility] HMO/PPO Address: [facility] [id number] [address] [id number] Care Teams Turner Off Relationship Specialty Start Date End Date Fransisco Nolan MD [address] [place] [address] PCP - General Family Medicine 03/03/24
--- NOTE | 2025-02-15 22:11 | PM.IMHP ---
H&P: HPI History of Present Illness Date/Time: 02/15/25 22:11 Chief Complaint: Chest pain that started about 3 hours prior to arrival to [facility] Narrative: 54-year-old female with hypertension, anxiety/depression, obesity, heavy tobacco abuse. Patient presented to [facility] Emergency Room with complaints of chest pain that started about 3 hours prior to arrival. Her symptoms were associated with shortness of breath, dizziness, nausea. She denied syncope. Patient denied prior known cardiac history. EKG at [facility] on my personal interpretation showed sinus rhythm, ST-elevation in anteroseptal leads. Patient was emergently transferred to [facility] and cardiac catheterization lab was activated for primary PCI. Based on records, patient was given aspirin, sublingual nitro, 4000 units of heparin at [facility]. At the time of evaluation, patient reported ongoing mild chest discomfort. Review of Systems Review of Systems: General: Negative for fever, chills, fatigue Psychological: Positive for anxiety, depression Ophthalmic: negative for loss of vision ENT: Negative for epistaxis, headaches Allergy and immunology: Negative for hives, nasal congestion Hematologic and lymphatic: Negative for overt bleeding problems Endocrine: Negative for hot flashes, palpitations Respiratory: Negative for cough, hemoptysis Cardiovascular: Positive for chest pain, dyspnea Gastrointestinal: Negative for abdominal pain Musculoskeletal: Negative for myalgia, joint pains Neurological: Negative for weakness Dermatological: Negative for rash, skin discoloration PMFSH Past Medical History Medical History Chronic back pain Nicotine dependence History of DVT (deep vein thrombosis) History of pulmonary embolism Arthritis Interstitial cystitis Hypertension Depression Degenerative disk disease Diabetes mellitus type II, uncontrolled Fibromyalgia Retinal detachment of right eye due to tear of retina Acute hypokalemia Pneumonia COPD (chronic obstructive pulmonary disease) Surgical History Surgical History History of ear, nose, and throat (ENT) surgery Hx of tonsillectomy History of carpal tunnel surgery of right wrist History of carpal tunnel surgery of left wrist History of cataract surgery Family History Family History Sibling Breast cancer Hypertension Diabetes mellitus Mother Hypokalemia Hypertension Sibling Bipolar disorder Sibling Liver failure Breast cancer Father Dementia Social History Social History Smoking packs per day: 1 Smoking cigarettes per day: 20.0 Years smoked: 30 Smoking pack-years: 30.00 Smoking status: Current every day smoker Tobacco type: cigarettes Smokeless tobacco user: chewing tobacco Second hand tobacco smoke exposure: No Alcohol intake: never Alcohol use details: reports social drinker, none currently Substance use: former Substance use type: marijuana Do You Feel Safe in your Home?: Yes Lack of Transportation: No Lack of Food: Never True Current Housing: I Have Housing Concerned About Future Housing: No Difficulty Paying Gas/Electric Bills: No Difficulty Paying for Meds: No Currently Unemployed: No Education: High School Diploma/GED Difficulty w/ Childcare or Family Care: No Living arrangements: with friend(s) Occupation/Education: unemployed Gender identity (if verbalized by the patient): Female Sexual Orientation (if Verbalized by the Patient): Straight or Heterosexual Spiritual care concerns: No Meds Home Medications and Allergies Home Medications ?Medication ?Instructions ?Recorded ?Confirmed ?Type amlodipine 5 mg tablet (Norvasc) 5 mg PO DAILY #30 tabs 10/15/23 01/17/24 Rx ipratropium 0.5 mg-albuterol 3 mg 3 ml inhalation QID PRN shortness 10/15/23 01/17/24 Rx (2.5 mg base)/3 mL nebulization of breath or wheezing #90 mL soln albuterol sulfate 90 mcg/actuation 2 puff inhalation QID PRN 01/17/24 Rx aerosol inhaler shortness of breath or wheezing #6.7 grams potassium chloride 20 mEq 20 meq PO DAILY 15 days #15 tabs 01/17/24 Rx tablet,extended release(part/cryst) escitalopram oxalate 20 mg tablet 20 mg PO DAILY #30 tabs 02/15/24 02/15/24 Rx hydrochlorothiazide 25 mg tablet 25 mg PO DAILY 02/15/24 History omeprazole 20 mg capsule,delayed 20 mg PO DAILY 02/15/24 History release aspirin 81 mg tablet,delayed 81 mg PO DAILY #30 tabs 02/16/24 02/16/24 Rx release (Adult Low Dose Aspirin) diclofenac sodium 75 mg 75 mg PO DAILY PRN pain 02/19/24 History tablet,delayed release pentosan polysulfate sodium 100 mg 100 mg PO TID 02/19/24 History capsule (Elmiron) tramadol 50 mg tablet 50 mg PO TID PRN pain #12 tabs 06/11/24 Rx Allergies Allergy/AdvReac Type Severity Reaction Status Date / Time Sulfa (Sulfonamide Allergy Hives Verified 06/11/24 08:50 Antibiotics) Exam Narrative: PHYSICAL EXAMINATION: GENERAL: Obese, Alert, oriented, no acute distress MENTAL STATUS: Anxious EYES: Extraocular movements intact, no pallor EARS: External ears appear normal, hearing grossly normal NOSE: Normal and patent, no discharge MOUTH: Mucous membranes moist, tongue normal NECK: Supple, no JVD CHEST: Diminished breath sounds HEART: Normal rate, regular rhythm, distant heart sounds ABDOMEN: Soft, nontender NEUROLOGICAL: Alert, oriented, normal speech, no gross motor deficits MUSCULOSKELETAL: No major deformity, no amputation EXTREMITIES: No pedal edema, no clubbing, no cyanosis SKIN: no rash on the exposed area, no cyanosis PSYCHIATRIC: Normal mood, appropriate affect Assessment and Plan Assessment and plan (1) ST elevation (STEMI) myocardial infarction: Qualifiers: Involved coronary artery: unspecified coronary artery Qualified Code(s): I21.3 - ST elevation (STEMI) myocardial infarction of unspecified site Code(s): I21.3 - ST elevation (STEMI) myocardial infarction of unspecified site Status: Acute Plan 54-year-old female with hypertension, 30 pack-year history of smoking. She presented to [facility] with 3 hour history of chest pain. EKG at presentation showed sinus rhythm with ST elevation in the anteroseptal leads. Cardiac manager laboratory was activated for primary PCI. Emergent coronary angiogram showed subtotal occlusion in the proximal LAD-infarct related vessel. Status post primary PCI/HARMEET x1 to proximal LAD. Left ventriculogram showed LV systolic dysfunction with segmental wall motion abnormality-akinetic mid-distal anterior, apical and inferior apical segment; LVEF about 30%. -admit to ICU -dual antiplatelet therapy with aspirin and ticagrelor for 1 year, then single antiplatelet treatment indefinitely as tolerated; high-dose statin; beta-eveline, ACEI or ARB. -labs including CMP, CBC, lipid panel, HbA1c. Serial troponins for prognostication -echo with Doppler -risk factor modification including complete smoking cessation. Patient showed willingness to quit tobacco.
--- NOTE | 2025-02-15 23:05 | WPDCARDPROC ---
Cardiac Cath Procedure Note Date of procedure:: 02/15/25 Performing physician:: Ramirez Hernandez MD Procedure Procedure note:: EMERGENT CARDIAC CATHETERIZATION AND PERCUTANEOUS CORONARY INTERVENTION REPORT DATE OF PROCEDURE: 02/15/2025 INDICATION FOR PROCEDURE: ACUTE CORONARY SYNDROME/ANTEROSEPTAL ST-ELEVATION MYOCARDIAL INFARCTION BRIEF CLINICAL HISTORY: 54-year-old female with hypertension, anxiety/depression, obesity, heavy tobacco abuse. Patient presented to [facility] Room with complaints of chest pain that started about 3 hours prior to arrival. Her symptoms were associated with shortness of breath, dizziness, nausea. She denied syncope. Patient denied prior known cardiac history. EKG at [facility] showed sinus rhythm, ST-elevation in anteroseptal leads. Patient was emergently transferred to [facility] and cardiac catheterization lab was activated for primary PCI. Based on records, patient was given aspirin, sublingual nitro, 4000 units of heparin at [facility]. At the time of evaluation, patient reported ongoing mild chest discomfort. PROCEDURES PERFORMED: 1. Ultrasound-guided right common femoral artery access 1. Emergent left heart catheterization- Selective left and right coronary angiogram; left ventriculogram and hemodynamic assessment 3. Primary percutaneous coronary intervention- a) balloon angioplasty and stenting of subtotal occlusion in the proximal LAD using a 3.5 x 15 mm Biotronik sirolimus eluting stent; b) intravascular ultrasound (IVUS) of LAD 4. Deployment of Mynx control hemostatic device 5. Moderate sedation-CPT code 68060 and beyond MODERATE SEDATION: Midazolam 1 mg; fentanyl 25 mcg. Start time 2219 , Stop time 2255 ; Total byir-bc-vqlj time 36 minutes; Annamaria Vogel RN was trained observer for moderate sedation. ACCESS SITE: Right common femoral artery PROCEDURE NOTE: Patient was emergently brought to catheterization lab and prepped and draped in a usual sterile manner. After local anesthesia with lidocaine, right common femoral artery access was taken with micropuncture needle under ultrasound guidance followed by insertion of a 6 Moroccan sheath. Selective left and right coronary angiogram was performed using 6 Moroccan EBU guide catheter and JR4 catheters respectively. Orthogonal views were taken. After completion of primary PCI, a 5 Moroccan pigtail catheter was advanced in the LV cavity and was flushed with normal saline. LV pressure measurement was performed. After this, left ventriculogram was performed. The catheter was flushed again, and gradient across the aortic valve was measured on the pullback of the catheter. After completion of procedure, Mynx vascular closure device was deployed with good hemostasis. Patient tolerated procedure well without any immediate procedure related complications. FINDINGS: LEFT MAIN CORONARY: Medium caliber vessel with mild diffuse plaque in the distal segment. The vessel trifurcates into tortuous LAD, ramus intermedius and small caliber left circumflex branches. LEFT ANTERIOR DESCENDING ARTERY: Medium caliber, tortuous vessel. There is 95-99% high-grade stenosis in the proximal segment (infarct-related lesion) in the proximal LAD. The remainder of the mid and distal LAD is tortuous vessel. MANUEL 1 flow was seen prior to primary PCI. Diagonal branch is a medium caliber vessel. RAMUS INTERMEDIUS: Medium caliber, tortuous vessel, no significant stenosis. LEFT CIRCUMFLEX ARTERY: Small caliber vessel, continues in AV groove. No significant focal stenosis. RIGHT CORONARY ARTERY: Large caliber vessel, mild plaque in the mid and distal segment. Vessel gives rise to small caliber PDA branch and medium to large caliber PLV branch. LEFT VENTRICULOGRAM: LV systolic dysfunction with segmental wall motion abnormality. Akinetic mid-distal anterior wall, apical wall and inferior apical segment; LVEF about 30%. LVEDP elevated at 26 mmHg. HEMODYNAMIC ASSESSMENT: Opening pressure 112/91 mmHg, closing pressure 103/72 mmHg, LVEDP 26 mmHg; no significant gradient across aortic valve on the pullback of pigtail catheter. INTERVENTION REPORT: Left main was selectively engaged using 6 Moroccan EBU guide catheter. Patient had already received aspirin, was given loading dose of ticagrelor in the rn labor delivery. Bivalirudin was was used for procedural anticoagulation. The subtotal occlusion in the proximal LAD was crossed using 0.014 luge wire. Next, balloon angioplasty was performed using a 2.5 x 10 mm compliant balloon. After this, IVUS was performed which showed diffuse plaque in the proximal LAD, reference diameter 3.5 x 3.5 mm. Next, a 3.5 x 15 mm Biotronik sirolimus eluting stent was successfully deployed at nominal pressures. Post dilation was performed using a 4.0 x 12 mm noncompliant balloon. Final angiogram showed good angiographic results without angiographically visible dissection or distal embolization. Left ventricular was performed as described above for PCI. Mynx vascular closure device was deployed for local hemostasis. Patient was chest pain-free after PCI. There were no immediate procedure related complications. CONCLUSIONS: 1. CAD: a) High-grade, 95-99% stenosis proximal LAD (infarct related vessel); b) mild plaque mid-distal RCA 2. LV systolic dysfunction with segmental wall motion abnormality (akinetic mid-distal anterior wall, apex, apical inferior segment), relatively preserved basal segments. LVEF about 30%. LVEDP elevated at 26 mmHg. 3. Primary PCI- IVUS, PTCA/stenting of proximal LAD using a 3.5 x 15 mm Biotronik sirolimus eluting stent. PLAN/RECOMMENDATIONS: - admit to ICU -dual antiplatelet therapy with aspirin and ticagrelor for 1 year, then single antiplatelet treatment indefinitely as tolerated; high-dose statin. Due to LV dysfunction, beta-eveline, ACEI or ARB would be appropriate. Medical treatment for LV dysfunction can be modified later which may include switching ACEI or ARB to ARNI, and addition of SGLT2i. -labs including CMP, CBC, lipid panel, HbA1c. Serial troponins for prognostication -echo with Doppler -risk factor modification including complete smoking cessation. Patient showed willingness to quit tobacco. -cardiac rehab after hospital discharge. This document was completed by using [employer] Fluency Direct speech recognition software, therefore, transmission maintenance supervisor variances may occur.
[2025-02-15 23:21] VITALS: BP 94/49; PULSE 69; PULSE 70; RESP 14; TEMP 36.6; O2SAT 96
[2025-02-15 23:29] VITALS: BMI 40.1
[2025-02-15 23:30] VITALS: BP 94/49; PULSE 67; RESP 13; TEMP 36.6; O2SAT 96
--- NOTE | 2025-02-15 23:30 | PC.NURSE ---
This patient, Abbi Manley, was admitted to Intensive Care Unit-8. Patient/family oriented to hospital policies and general routines including ID bracelet, bed and alarms, visiting hours, pain management, procedures, bathroom and other care routines, personal items, smoking policy, room service/diet, and visiting hours. Information on how to activate the Rapid Response Team has been discussed. Patient/Family are encouraged to report perceived risks to care and to ask questions if they do not understand what they are told or what they should do. Received report from Eugene Adams at 2303. Patient arrived at 2320 via bed with RN x2 at bedside.
[2025-02-15 23:36] VITALS: BP 106/71; PULSE 73; PULSE 78; RESP 14; TEMP 36.6; O2SAT 96
[2025-02-15 23:45] LABS: Cholesterol 291 mg/dL (0-200); HDL Direct 36 mg/dL; Triglycerides 232 mg/dL (<150)
[2025-02-15 23:51] VITALS: BP 99/63; PULSE 68; PULSE 69; RESP 14; O2SAT 95
[2025-02-15 23:56] LABS: LDL Cholesterol Direct 178 mg/dL
[2025-02-15 23:58] LABS: Hemoglobin A1C 6.1 % (<5.7)
[2025-02-16] VITALS (23 sets, daily range): BP systolic 94–154; BP diastolic 56–108; PULSE 69–89; RESP 13–18; TEMP 36.2–37; O2SAT 94–98
--- NOTE | 2025-02-16 | ECHO_ITS ---
Patient Info Name: Abbi Manley Age: 54 years : 1970 Gender: Female Ht: 63 in Wt: 219 lbs BSA: 2.15 m2 HR: 89 bpm BP: 138 / 92 mmHg Heart Rhythm: Sinus Rhythm Technical Quality: Fair Exam Date: 02/16/2025 8:36 AM Patient Status: I Admit Date: 02/15/2025 Exam Type: CA echo dop color flow w con Complete two-dimensional, color flow and Doppler transthoracic echocardiogram is performed with contrast to opacify the left ventricle and to improve the deliniation of the left ventricle endocardial borders. Finance Lecturer: Kay Wakefield Attending Provider: Ramirez Hernandez MD Contrast/Agitated Saline Contrast/Ag. Saline: Definity Amount: 3.00 ml Administered By: Kay Wakefield Existing IV Access: Yes IV Access Condition: patent with no signs of infiltration Summary 1. Left ventricular systolic dysfunction with akinesis of the anterior wall, anteroseptal segment, apical lateral segment. 2. Souleymane dyskinesis of the apex. 3. Global ejection fraction 30-35%. 4. No significant valve dysfunction. Left Ventricle Left ventricular chamber dimension is normal. Left ventricular systolic function is severely reduced, estimated at 30-35. The left ventricular diastolic function is grade I diastolic dysfunction. Right Ventricle Right ventricular chamber dimension is normal. Left Atria Left atrial chamber dimension is normal. Right Atria Right atrial chamber dimension is normal. Aortic Valve The aortic valve is normal. Pulmonic Valve The pulmonic valve is not well visualized. Mitral Valve The mitral valve has normal leaflets. Tricuspid Valve The tricuspid valve leaflets are normal. Pericardium/Pleural The pericardium appears normal. Aorta The aortic root size at the sinus of Valsalva is normal. Left Ventricular Outflow Tract Name Value Normal LVOT 2D LVOT Diameter 1.7 cm LVOT Doppler LVOT Peak Velocity 119 cm/s LVOT Peak Gradient 6 mmHg LVOT Mean Gradient 3 mmHg LVOT VTI 24 cm LVOT Stroke Volume 51 ml LVOT CO 4.6 l/min LVOT CI 2.1 l/min/m2 Pulmonic Valve Name Value Normal RVOT Doppler RVOT Peak Velocity 104 cm/s RVOT Peak Gradient 4 mmHg PV Doppler PV Peak Velocity 114 cm/s PV Peak Gradient 5 mmHg Mitral Valve Name Value Normal MV Diastolic Function MV E Peak Velocity 84 cm/s MV A Peak Velocity 100 cm/s MV E/A 0.8 MV Decel Time (PW) 149 ms MV Annular TDI MV E/e' (Septal) 13.3 MV E/e' (Lateral) 7.5 MV E/e' (Average) 10.4 Aortic Valve Name Value Normal AV Doppler AV Peak Velocity 177 cm/s AV Peak Gradient 13 mmHg AV Area (Cont Eq Leo) 1.4 cm2 AV DI (Leo) 0.67 AV Regurgitation 2D LVOT Area 2.1 cm2 Ventricles Name Value Normal LV Dimensions 2D/MM LVOT Diameter 1.7 cm LV Fractional Shortening/Ejection Fraction 2D/MM LV Diastolic Volume (4C MOD) 117 ml LV EF (4C MOD) 46 % LV Diastolic Volume (2C MOD) 86 ml LV EF (2C MOD) 59 % LV Diastolic Volume (BP MOD) 102 ml 46-106 LV Diastolic Volume Index (BP MOD) 47 ml/m2 29-61 LV Systolic Volume (BP MOD) 46 ml 14-42 LV Systolic Volume Index (BP MOD) 22 ml/m2 8-24 LV EF (BP MOD) 54 % 54-74 LV Diastolic Length (4C) 8.5 cm LV Systolic Length (4C) 8.1 cm LV Stroke Volume (4C MOD) 54 ml Atria Name Value Normal LA Dimensions LA Volume (4C A-L) 48 ml LA Volume (BP A-L) 51 ml RA Dimensions RA Systolic Major Wise Length (4C) 4.3 cm 2.2-2.8 RA Area (4C) 10.6 cm2 <=18.0 Report Signatures
[2025-02-16] MEDS: ATORVASTATIN 40 MG TABLET 80 MG PO ×2 (00:52→09:36)
[2025-02-16] MEDS: MORPHINE SULFATE (*CRX) 2 MG/ML INJ 1 MG IV PUSH (02:25)
[2025-02-16 07:56] LABS: MRSA (PCR) NOT DETECTED (NOT DETECTE)
[2025-02-16] MEDS: PERFLUTREN LIPID MICROSPHERES 1.5 ML VIAL DILUTED TO 10 ML TOTAL VOLUME IV PUSH (09:00)
--- NOTE | 2025-02-16 09:12 | P.CONIN_ITS ---
Assessment and Plan Assessment and plan (1) ST elevation (STEMI) myocardial infarction: Qualifiers: Involved coronary artery: unspecified coronary artery Qualified Code(s): I21.3 - ST elevation (STEMI) myocardial infarction of unspecified site Code(s): I21.3 - ST elevation (STEMI) myocardial infarction of unspecified site Status: Inactive Assessment and Plan: Anterior STEMI status post PCI and drug-eluting stent placement to LAD Patient was counseled and encouraged to quit smoking Continue aspirin Brilinta metoprolol losartan and Lipitor Check echocardiogram EKG reviewed Patient now chest pain-free. Current by discomfort likely secondary to pericardial or pleural inflammation (2) Hypertension: Code(s): I10 - Essential (primary) hypertension Status: Acute Assessment and Plan: Patient has been started on metoprolol and losartan. Norvasc is on hold. Will adjust depending on the response (3) COPD (chronic obstructive pulmonary disease): Code(s): J44.9 - Chronic obstructive pulmonary disease, unspecified Status: Acute Assessment and Plan: DuoNeb p.r.n. and continue trelegy inhaler (4) Tobacco abuse: Code(s): Z72.0 - Tobacco use Status: Acute Assessment and Plan: Patient was counseled and encouraged to quit smoking Plan DVT prophylaxis -Lovenox Nutrition -diet ordered Code Status - Full Code Transfer out ICU today Area Development Manager Consult Note Consult date: 02/16/25 Reason for consult: STEMI HPI: Abbi Manley is a 54 year old female with past medical history of hypertension and smoking presented to [facility] ER yesterday with chief complaint of chest pain. She states the pain started 3 hours prior to presentation and she was planning to go to bed. Pain was under her left breast sharp 8/10 radiated to her left arm. Pain was associated with shortness of breath nausea and vomiting palpitations and lightheadedness. She denies any cough or fever. Prior to that she was feeling fine with no symptoms. All other systems were reviewed and were negative Workup in the ER showed patient had ST elevation on EKG in anterior septal leads. Patient was transferred to [facility] and taken to cardiac catheterization lab. Patient underwent balloon angioplasty and stenting of subtotal occlusion in the proximal LAD using a 3.5 x 15 mm Biotronik sirolimus eluting stent. Postprocedure patient was admitted to ICU for further evaluation management. This morning patient states that she feels better. She states that she has achy pain on left side which is 2/10 severe and is different in character and quality than what she came in with. She states that pain is now worsened with deep breathing and movement. She denies any other complaints. All other systems were reviewed and were negative Review of Systems Review of Systems: All systems reviewed & are unremarkable except as noted in HPI and below (HPI) [facility] Past Medical History Medical History Chronic back pain Nicotine dependence History of DVT (deep vein thrombosis) History of pulmonary embolism Arthritis Interstitial cystitis Hypertension Depression Degenerative disk disease Diabetes mellitus type II, uncontrolled Fibromyalgia Retinal detachment of right eye due to tear of retina Acute hypokalemia Pneumonia COPD (chronic obstructive pulmonary disease) Surgical History Surgical History History of ear, nose, and throat (ENT) surgery Hx of tonsillectomy History of carpal tunnel surgery of right wrist History of carpal tunnel surgery of left wrist History of cataract surgery Family History Family History Sibling Breast cancer Hypertension Diabetes mellitus Mother Hypokalemia Hypertension Sibling Bipolar disorder Sibling Liver failure Breast cancer Father Dementia Social History Social History Smoking packs per day: 1 Smoking cigarettes per day: 20.0 Years smoked: 35 Smoking pack-years: 35.00 Smoking status: Current every day smoker Tobacco type: cigarettes Smokeless tobacco user: chewing tobacco Second hand tobacco smoke exposure: No Alcohol intake: never Alcohol use details: reports social drinker, none currently Substance use: never Substance use type: marijuana Do You Feel Safe in your Home?: Yes Lack of Transportation: YES Lack of Food: Never True Current Housing: I Have Housing Concerned About Future Housing: No Difficulty Paying Gas/Electric Bills: No Difficulty Paying for Meds: No Currently Unemployed: YES Education: High School Diploma/GED Difficulty w/ Childcare or Family Care: No Living arrangements: with friend(s) Occupation/Education: unemployed Gender identity (if verbalized by the patient): Female Sexual Orientation (if Verbalized by the Patient): Straight or Heterosexual Spiritual care concerns: No Meds Home Medications and Allergies Home Medications ?Medication ?Instructions ?Recorded ?Confirmed ?Type amlodipine 5 mg tablet (Norvasc) 5 mg PO DAILY #30 tabs 10/15/23 02/16/25 Rx albuterol sulfate 90 mcg/actuation 2 puff inhalation QID PRN 01/17/24 02/16/25 Rx aerosol inhaler shortness of breath or wheezing #6.7 grams escitalopram oxalate 20 mg tablet 20 mg PO DAILY #30 tabs 02/15/24 02/16/25 Rx hydrochlorothiazide 25 mg tablet 25 mg PO DAILY 02/15/24 02/16/25 History omeprazole 20 mg capsule,delayed 20 mg PO DAILY PRN indigestion 02/15/24 02/16/25 History release aspirin 81 mg tablet,delayed 81 mg PO DAILY #30 tabs 02/16/24 02/16/25 Rx release (Adult Low Dose Aspirin) diclofenac sodium 75 mg 75 mg PO DAILY PRN pain 02/19/24 02/16/25 History tablet,delayed release budesonide 160 mcg-glycopyr 9 2 inh inhalation BID 02/16/25 02/16/25 History mcg-formot 4.8 mcg/actuation HFA inhaler (Breztri Aerosphere) bupropion HCl 150 mg 24 hr tablet, 150 mg PO DAILY 02/16/25 02/16/25 History extended release gabapentin 300 mg capsule 300 mg PO TID 02/16/25 02/16/25 History potassium chloride 20 mEq 20 meq PO BID 02/16/25 02/16/25 History tablet,extended release(part/cryst) Allergies Allergy/AdvReac Type Severity Reaction Status Date / Time Sulfa (Sulfonamide Allergy Hives Verified 06/11/24 08:50 Antibiotics) Vital Signs Vital Signs - 24 hr 02/15/25 23:21 02/15/25 23:30 02/15/25 23:36 Temperature 36.6 C 36.6 C 36.6 C Pulse Rate 69 67 78 Pulse Rate [Right Pedal (Dorsalis Pedis) Palpation] 70 73 Respiratory Rate 14 13 14 Blood Pressure 94/49 L 94/49 L 106/71 Pulse Oximetry 96 96 96 Oxygen Delivery 02/15/25 23:51 02/16/25 00:00 02/16/25 00:00 Temperature Pulse Rate 69 73 Pulse Rate [Right Pedal (Dorsalis Pedis) Palpation] 68 Respiratory Rate 14 Blood Pressure 99/63 L Pulse Oximetry 95 96 Oxygen Delivery Room Air 02/16/25 00:00 02/16/25 00:21 02/16/25 00:51 Temperature Pulse Rate 69 80 74 Pulse Rate [Right Pedal (Dorsalis Pedis) Palpation] 78 70 Respiratory Rate 14 14 15 Blood Pressure 99/63 L 122/86 111/86 Pulse Oximetry 95 98 96 Oxygen Delivery 02/16/25 01:51 02/16/25 02:00 02/16/25 02:00 Temperature Pulse Rate 76 73 73 Pulse Rate [Right Pedal (Dorsalis Pedis) Palpation] 75 Respiratory Rate 15 13 Blood Pressure 115/77 130/83 Pulse Oximetry 97 94 Oxygen Delivery 02/16/25 02:51 02/16/25 03:51 02/16/25 04:00 Temperature 36.2 C L Pulse Rate 72 76 71 Pulse Rate [Right Pedal (Dorsalis Pedis) Palpation] 72 76 Respiratory Rate 14 15 13 Blood Pressure 123/82 121/80 127/86 Pulse Oximetry 97 98 98 Oxygen Delivery 02/16/25 04:00 02/16/25 04:00 02/16/25 04:51 Temperature Pulse Rate 72 75 Pulse Rate [Right Pedal (Dorsalis Pedis) Palpation] 76 Respiratory Rate 14 Blood Pressure 135/95 H Pulse Oximetry 98 98 Oxygen Delivery Room Air 02/16/25 06:00 02/16/25 06:00 02/16/25 07:35 Temperature 36.8 C Pulse Rate 71 71 84 Pulse Rate [Right Pedal (Dorsalis Pedis) Palpation] Respiratory Rate 16 14 Blood Pressure 138/92 H 135/95 H Pulse Oximetry 96 97 Oxygen Delivery Exam Narrative: General: Pt is alert awake and in NAD Lungs/Chest: Trachea central Clear BS B/L, No crackles or wheezing. Cardiac: RRR. Normal S1 S2. No murmurs Circulation: Pedal pulses are are slightly weak but palpable and symmetrical. Feet are warm Abdomen: Normal bowel sounds.. Soft. NT. ND. Extremities: No clubbing, cyanosis or edema. Warm right groin shows no sign of hematoma or swelling or redness : Law in place Neurologic: Follows commands. Moves all 4 extremities PERRL AO x3 Skin: No Rash Results ECG Interpretation: SINUS RHYTHM LOW QRS VOLTAGE IN PRECORDIAL LEADS CANNOT R/O SEPTAL INFARCT, AGE INDETERMINATE ANTEROLATERAL ST ELEVATION MYOCARDIAL INJURY- ACUTE RECIPROCAL ST DEPRESSION IN INFERIOR LEADS BASELINE ARTIFACT- I, II, III, AVL, V4-V6 ABNORMAL ECG Quality VTE Prophylaxis VTE prophylaxis: pharmacologic ordered Hospitalist [facility] Advance Care Plan I have confirmed that the patient's Advanced Care Plan is present, code status is documented, or surrogate decision maker is listed in patient medical record.: Yes Medication Reconciliation I have utilized all available resources to obtain, update and review the patients current medications (includes all prescriptions, OTC, herbals, cannabis, and nutritional supplements).: Yes
[2025-02-16] MEDS: LOSARTAN POTASSIUM 12.5 MG TABLET PO (09:38)
[2025-02-16] MEDS: METOPROLOL TARTRATE 12.5 MG TABLET PO ×2 (09:38→20:16)
[2025-02-16] MEDS: FLUTICASONE/UMECLIDIN/VILANTER 100-62.5-25 MCG ELLIPTA 1 PUFF INHALATION (09:40)
[2025-02-16] MEDS: TICAGRELOR 90 MG TABLET PO ×2 (09:41→20:16)
[2025-02-16] MEDS: ASPIRIN 81 MG ENTERIC TABLET PO (09:41)
[2025-02-16] MEDS: ACETAMINOPHEN 500 MG TABLET PO ×2 (09:57→17:02)
--- NOTE | 2025-02-16 10:07 | IVDEFINITY ---
Prior to administration of IV Definity the patient was educated on the risks and benefits of the imaging enhancing agent including potential adverse side effects. The patient verbalized understanding. Allergies were verified. No exclusion criteria were identified and at least one of the following inclusion criteria were met: 1) physician request, 2) patient technically difficult to image (per the [place] [employer]chocardi[employer] guidelines of two or more segments not discernable within the apical view), or 3) questionable left ventricular function. ?
--- NOTE | 2025-02-16 10:19 | PM.PNCARD ---
Progress Note: A&P Assessment and Plan (1) Tobacco abuse: Code(s): Z72.0 - Tobacco use Status: Acute (2) Acute hypokalemia: Code(s): E87.6 - Hypokalemia Status: Acute (3) Hypertension: Code(s): I10 - Essential (primary) hypertension Status: Acute (4) ST elevation (STEMI) myocardial infarction involving left anterior descending coronary artery: Code(s): I21.02 - ST elevation (STEMI) myocardial infarction involving left anterior descending coronary artery Status: Acute Plan Problem list: Anterolateral STEMI status post successful IVUS guided PCI to subtotal occlusion in proximal LAD with a 3.5 x 15 mm Biotronik sirolimus eluting stent Ischemic cardiomyopathy (LV angiogram showed LVEF of about 30%, RWMA with akinetic mid-distal anterior wall, apical wall and inferior apical segment) Elevated LVEDP of 26 mmHg Tobacco use Hypertension Fibromyalgia Diabetes mellitus Plan: -DAPT for 1 year with aspirin 81 mg daily and Brilinta 90 mg b.i.d.. Then, aspirin 81 mg daily indefinitely -Continue atorvastatin 80 mg daily -GDMT for cardiomyopathy-started on metoprolol and lisinopril last night. Add empagliflozin 10 mg daily and spironolactone 25 mg daily -TTE today -Patient wants to be a DNR. I discussed the risk of reperfusion arrhythmias during the 1st 24-48 hours post primary PCI after an AMI. Patient understands this risk and still wants to be a DNR. Patient's nurse was also present at the time of this discussion. Order will be placed for DNR in the chart -Counseled about smoking cessation -Hospitalist consult for management of medical issues -Cardiac rehab Subjective Date/time seen: 02/16/25 10:19 Interval history: Reason for encounter: STEMI Relevant history:54-year-old female with hypertension, anxiety/depression, obesity, heavy tobacco abuse presented to [facility] Emergency Room with complaints of chest pain that started about 3 hours prior to arrival. Her symptoms were associated with shortness of breath, dizziness, nausea. EKG at [facility] showed sinus rhythm, ST-elevation in anteroseptal leads. Patient was emergently transferred to [facility] and cardiac catheterization lab was activated for primary PCI. Patient had successful IVUS guided PCI to subtotal occlusion in proximal LAD with a 3.5 x 15 mm Biotronik sirolimus eluting stent without any complications. After catheterization she was admitted to the ICU. Interval history: Patient reports chest pain which gets worse with deep inspiration, of intensity 3 x 10. This is different than the chest pain she had prior to her PCI yesterday. No shortness of breath, dizziness, lightheadedness, palpitations. Patient states that she has a lot of generalized pain on a daily basis due to fibromyalgia. She wants to be a DNR. She does not want intubation, shock, CPR or any other resuscitative measures. Review of Systems Cardiovascular: Comments: As reported in the HPI Respiratory: Comments: As reported in the HPI Exam Narrative: General: Alert oriented x3, no acute distress Neck: Supple, no JVD Chest: Bilaterally clear to auscultation, no rales or rhonchi Cardiac: S1, S2 +, regular rate, regular rhythm, no murmurs or rubs Extremities: No pedal edema, no skin rash Neurologic: Alert and oriented x3, no focal neurological deficits Objective Data Vital Signs Vital Signs: Vital Signs - 24 hr 02/15/25 23:21 02/15/25 23:30 02/15/25 23:36 Temperature 36.6 C 36.6 C 36.6 C Pulse Rate 69 67 78 Pulse Rate [Right Pedal (Dorsalis Pedis) Palpation] 70 73 Respiratory Rate 14 13 14 Blood Pressure 94/49 L 94/49 L 106/71 Pulse Oximetry 96 96 96 Oxygen Delivery 02/15/25 23:51 02/16/25 00:00 02/16/25 00:00 Temperature Pulse Rate 69 73 Pulse Rate [Right Pedal (Dorsalis Pedis) Palpation] 68 Respiratory Rate 14 Blood Pressure 99/63 L Pulse Oximetry 95 96 Oxygen Delivery Room Air 02/16/25 00:00 02/16/25 00:21 02/16/25 00:51 Temperature Pulse Rate 69 80 74 Pulse Rate [Right Pedal (Dorsalis Pedis) Palpation] 78 70 Respiratory Rate 14 14 15 Blood Pressure 99/63 L 122/86 111/86 Pulse Oximetry 95 98 96 Oxygen Delivery 02/16/25 01:51 02/16/25 02:00 02/16/25 02:00 Temperature Pulse Rate 76 73 73 Pulse Rate [Right Pedal (Dorsalis Pedis) Palpation] 75 Respiratory Rate 15 13 Blood Pressure 115/77 130/83 Pulse Oximetry 97 94 Oxygen Delivery 02/16/25 02:51 02/16/25 03:51 02/16/25 04:00 Temperature 36.2 C L Pulse Rate 72 76 71 Pulse Rate [Right Pedal (Dorsalis Pedis) Palpation] 72 76 Respiratory Rate 14 15 13 Blood Pressure 123/82 121/80 127/86 Pulse Oximetry 97 98 98 Oxygen Delivery 02/16/25 04:00 02/16/25 04:00 02/16/25 04:51 Temperature Pulse Rate 72 75 Pulse Rate [Right Pedal (Dorsalis Pedis) Palpation] 76 Respiratory Rate 14 Blood Pressure 135/95 H Pulse Oximetry 98 98 Oxygen Delivery Room Air 02/16/25 06:00 02/16/25 06:00 02/16/25 07:35 Temperature 36.8 C Pulse Rate 71 71 84 Pulse Rate [Right Pedal (Dorsalis Pedis) Palpation] Respiratory Rate 16 14 Blood Pressure 138/92 H 135/95 H Pulse Oximetry 96 97 Oxygen Delivery 02/16/25 09:38 02/16/25 09:40 Temperature Pulse Rate 78 81 Pulse Rate [Right Pedal (Dorsalis Pedis) Palpation] Respiratory Rate 13 Blood Pressure Pulse Oximetry Oxygen Delivery Intake/Output Intake/Output: Intake & Output 02/13/25 02/14/25 02/15/25 02/16/25 23:59 23:59 23:59 23:59 Intake Total 390 Output Total 1500 Balance -1110 Meds/Results Medications: Active Medications Generic Name Dose Route Start Last Admin Trade Name Freq PRN Reason Stop Dose Admin Acetaminophen 500 mg 02/16/25 02:00 02/16/25 09:57 Acetaminophen 500 Mg Tablet PO 500 mg Q6H PRN Administration Mild Pain (1-3) or Fever Albuterol 2 puff 02/16/25 10:14 Albuterol Sulfate (*Sp) Aerosol 1 Puff INHALATION QID PRN shortness of breath or wheezing Albuterol/Ipratropium 3 ml 02/16/25 08:12 Ipratropium 0.5 Mg/Albuterol Sulfate 2.5 Mg Ampul.Neb 3 Ml INHALATION Q6HRT PRN Wheezing Amlodipine Besylate 5 mg 02/17/25 09:00 Amlodipine Besylate 5 Mg Tablet PO DAILY [facility] Aspirin 81 mg 02/16/25 09:00 02/16/25 09:41 Aspirin 81 Mg Enteric Tablet PO 81 mg QAM STACEY Administration Atorvastatin Calcium 80 mg 02/15/25 23:10 02/16/25 09:36 Atorvastatin 40 Mg Tablet PO 80 mg DAILY [facility] Administration Bupropion HCl 150 mg 02/17/25 09:00 Bupropion Hcl Xl (24 Hr) 150 Mg Tabcr PO DAILY [facility] Escitalopram Oxalate 20 mg 02/17/25 09:00 Escitalopram Oxalate 10 Mg Tablet PO DAILY [facility] Fluticasone/Umeclidinium/Vilanterol 1 puff 02/17/25 08:00 Fluticasone/Umeclidin/Vilanter 100-62.5-25 Mcg Ellipta INHALATION DAILYRT [facility] Gabapentin 300 mg 02/16/25 13:00 Gabapentin 300 Mg Capsule PO TID [facility] Hydrochlorothiazide 25 mg 02/17/25 09:00 Hydrochlorothiazide 25 Mg Tablet PO DAILY [facility] Losartan Potassium 12.5 mg 02/16/25 09:00 02/16/25 09:38 Losartan Potassium 12.5 Mg Tablet PO 12.5 mg DAILY [facility] Administration Metoprolol Tartrate 12.5 mg 02/16/25 09:00 02/16/25 09:38 Metoprolol Tartrate 12.5 Mg Tablet PO 12.5 mg Q12HR [facility] Administration Non-Formulary Medication 2 inhalation 02/16/25 17:00 [id number] [Breztri Aerosphere] INHALATION 03/18/25 16:59 BID [facility] Non-Formulary Medication 20 mg 02/16/25 10:14 Omeprazole PO DAILY PRN indigestion Non-Formulary Medication 20 meq 02/16/25 17:00 Potassium Chloride PO 03/18/25 16:59 BID [facility] Ticagrelor 90 mg 02/16/25 09:00 02/16/25 09:41 Ticagrelor 90 Mg Tablet PO 90 mg Q12HR [facility] Administration Labs Labs: Laboratory Results - last 24 hr 02/15/25 02/16/25 23:28 06:07 Hemoglobin A1c 6.1 H Triglycerides 232 H Cholesterol 291 H LDL Cholesterol Direct 178 HDL Direct 36 Nasal MRSA (PCR) Not detected
--- NOTE | 2025-02-16 12:02 | PC.NURSE ---
Confirmed DNR status with the patient and Dr Clay. PT sister in the room.
[2025-02-16] MEDS: GABAPENTIN 300 MG CAPSULE PO ×2 (12:13→17:02)
--- NOTE | 2025-02-16 16:23 | PM.IMCN ---
Assessment and Plan Assessment and plan (1) ST elevation (STEMI) myocardial infarction involving left anterior descending coronary artery: Code(s): I21.02 - ST elevation (STEMI) myocardial infarction involving left anterior descending coronary artery Status: Acute Plan STEMI s/p PCI to LAD A1c 6.1, LDL 178 ECHO pending Continue Aspirin, Brilinta, Lipitor, Losartan and Metoprolol continue Jardiance and Spironolactone per cardiology cardiology following HTN continue losartan and Amlodipine monitor and adjust with clinical course Fibromylgia Diclofenac discontinued started on Lyrica monitor COPD on Duoneb treatment monitor Hx of DVT/PE noted she is no longer on AC. DVT prophylaxis on Sq Lovenox Full code SDM: Sister Karlene Vyas HPI Date of Consult Consult date: 02/16/25 Requesting Physician: Ramirez Hernandez MD Primary Care Provider: Fransisco Nolan, Consult Narrative Reason for consult: Medical management Narrative: Abbi Manley is a 54 year old female with PMH Fibromyalgia, HTN, DVT/PE and COPD who presented to the [place] ER yesterday with chest pain. Patient was diagnosed of STEMI and was emergently transferred over here for Emergency cardiac cath. patient successfully underwent cardiac cath with pCI to LAD. we are consulted for medical management. At bedside patient noted mild chest pain described as dull 1/10, otherwise denies ant SOB, vomiting, abd pain, diarrhea and lightheadedness. Vial signs stable and wnl, labs notable for WBC 19, A1c 6.1, MRSA negative, CXR no infiltrates. Review of Systems Review of Systems: All other systems were reviewed and negative except as noted in the HPI above [facility] Past Medical History Medical History Chronic back pain Nicotine dependence History of DVT (deep vein thrombosis) History of pulmonary embolism Arthritis Interstitial cystitis Hypertension Depression Degenerative disk disease Diabetes mellitus type II, uncontrolled Fibromyalgia Retinal detachment of right eye due to tear of retina Acute hypokalemia Pneumonia COPD (chronic obstructive pulmonary disease) Surgical History Surgical History History of ear, nose, and throat (ENT) surgery Hx of tonsillectomy History of carpal tunnel surgery of right wrist History of carpal tunnel surgery of left wrist History of cataract surgery Family History Family History Sibling Breast cancer Hypertension Diabetes mellitus Mother Hypokalemia Hypertension Sibling Bipolar disorder Sibling Liver failure Breast cancer Father Dementia Social History Social History Smoking packs per day: 1 Smoking cigarettes per day: 20.0 Years smoked: 35 Smoking pack-years: 35.00 Smoking status: Current every day smoker Tobacco type: cigarettes Smokeless tobacco user: chewing tobacco Second hand tobacco smoke exposure: No Alcohol intake: never Alcohol use details: reports social drinker, none currently Substance use: never Substance use type: marijuana Do You Feel Safe in your Home?: Yes Lack of Transportation: YES Lack of Food: Never True Current Housing: I Have Housing Concerned About Future Housing: No Difficulty Paying Gas/Electric Bills: No Difficulty Paying for Meds: No Currently Unemployed: YES Education: High School Diploma/GED Difficulty w/ Childcare or Family Care: No Living arrangements: with friend(s) Occupation/Education: unemployed Gender identity (if verbalized by the patient): Female Sexual Orientation (if Verbalized by the Patient): Straight or Heterosexual Spiritual care concerns: No Meds Home Medications and Allergies Home Medications ?Medication ?Instructions ?Recorded ?Confirmed ?Type amlodipine 5 mg tablet (Norvasc) 5 mg PO DAILY #30 tabs 10/15/23 02/16/25 Rx albuterol sulfate 90 mcg/actuation 2 puff inhalation QID PRN 01/17/24 02/16/25 Rx aerosol inhaler shortness of breath or wheezing #6.7 grams escitalopram oxalate 20 mg tablet 20 mg PO DAILY #30 tabs 02/15/24 02/16/25 Rx hydrochlorothiazide 25 mg tablet 25 mg PO DAILY 02/15/24 02/16/25 History omeprazole 20 mg capsule,delayed 20 mg PO DAILY PRN indigestion 02/15/24 02/16/25 History release aspirin 81 mg tablet,delayed 81 mg PO DAILY #30 tabs 02/16/24 02/16/25 Rx release (Adult Low Dose Aspirin) diclofenac sodium 75 mg 75 mg PO DAILY PRN pain 02/19/24 02/16/25 History tablet,delayed release budesonide 160 mcg-glycopyr 9 2 inh inhalation BID 02/16/25 02/16/25 History mcg-formot 4.8 mcg/actuation HFA inhaler (Breztri Aerosphere) bupropion HCl 150 mg 24 hr tablet, 150 mg PO DAILY 02/16/25 02/16/25 History extended release gabapentin 300 mg capsule 300 mg PO TID 02/16/25 02/16/25 History potassium chloride 20 mEq 20 meq PO BID 02/16/25 02/16/25 History tablet,extended release(part/cryst) ticagrelor 90 mg tablet (Brilinta) 90 mg PO Q12HR 30 days #60 tabs 02/16/25 Rx Allergies Allergy/AdvReac Type Severity Reaction Status Date / Time Sulfa (Sulfonamide Allergy Hives Verified 06/11/24 08:50 Antibiotics) Vital Signs Vital Signs - 24 hr 02/15/25 23:21 02/15/25 23:30 02/15/25 23:36 Temperature 97.8 F 97.8 F 97.8 F Pulse Rate 69 67 78 Pulse Rate [Right Pedal (Dorsalis Pedis) Palpation] 70 73 Respiratory Rate 14 13 14 Blood Pressure 94/49 L 94/49 L 106/71 Pulse Oximetry 96 96 96 Oxygen Delivery 02/15/25 23:51 02/16/25 00:00 02/16/25 00:00 Temperature Pulse Rate 69 73 Pulse Rate [Right Pedal (Dorsalis Pedis) Palpation] 68 Respiratory Rate 14 Blood Pressure 99/63 L Pulse Oximetry 95 96 Oxygen Delivery Room Air 02/16/25 00:00 02/16/25 00:21 02/16/25 00:51 Temperature Pulse Rate 69 80 74 Pulse Rate [Right Pedal (Dorsalis Pedis) Palpation] 78 70 Respiratory Rate 14 14 15 Blood Pressure 99/63 L 122/86 111/86 Pulse Oximetry 95 98 96 Oxygen Delivery 02/16/25 01:51 02/16/25 02:00 02/16/25 02:00 Temperature Pulse Rate 76 73 73 Pulse Rate [Right Pedal (Dorsalis Pedis) Palpation] 75 Respiratory Rate 15 13 Blood Pressure 115/77 130/83 Pulse Oximetry 97 94 Oxygen Delivery 02/16/25 02:51 02/16/25 03:51 02/16/25 04:00 Temperature 97.1 F L Pulse Rate 72 76 71 Pulse Rate [Right Pedal (Dorsalis Pedis) Palpation] 72 76 Respiratory Rate 14 15 13 Blood Pressure 123/82 121/80 127/86 Pulse Oximetry 97 98 98 Oxygen Delivery 02/16/25 04:00 02/16/25 04:00 02/16/25 04:51 Temperature Pulse Rate 72 75 Pulse Rate [Right Pedal (Dorsalis Pedis) Palpation] 76 Respiratory Rate 14 Blood Pressure 135/95 H Pulse Oximetry 98 98 Oxygen Delivery Room Air 02/16/25 06:00 02/16/25 06:00 02/16/25 07:35 Temperature 98.2 F Pulse Rate 71 71 84 Pulse Rate [Right Pedal (Dorsalis Pedis) Palpation] Respiratory Rate 16 14 Blood Pressure 138/92 H 135/95 H Pulse Oximetry 96 97 Oxygen Delivery 02/16/25 08:00 02/16/25 08:00 02/16/25 09:38 Temperature Pulse Rate 78 78 Pulse Rate [Right Pedal (Dorsalis Pedis) Palpation] Respiratory Rate Blood Pressure Pulse Oximetry 97 Oxygen Delivery Room Air 02/16/25 09:40 02/16/25 10:00 02/16/25 10:00 Temperature Pulse Rate 81 75 89 Pulse Rate [Right Pedal (Dorsalis Pedis) Palpation] Respiratory Rate 13 18 Blood Pressure 154/108 H Pulse Oximetry 96 Oxygen Delivery 02/16/25 11:57 02/16/25 12:00 02/16/25 12:00 Temperature 97.8 F Pulse Rate 79 81 Pulse Rate [Right Pedal (Dorsalis Pedis) Palpation] Respiratory Rate 18 Blood Pressure 134/101 H Pulse Oximetry 97 98 Oxygen Delivery Room Air 02/16/25 14:00 02/16/25 14:00 Temperature Pulse Rate 78 71 Pulse Rate [Right Pedal (Dorsalis Pedis) Palpation] Respiratory Rate 18 Blood Pressure 124/92 H Pulse Oximetry 98 Oxygen Delivery Exam Narrative: General: alert and comfortable Eyes: EOMI, PERRLA ENNT External ears normal, Neck is supple, no masses, Respiratory systems: Clear to auscultation Cardiovascular S1, S2, normal rhythm, no murmur, rub, or gallop; no thrill or palpable murmurs on palpation. Gastrointestinal: soft, non-tender, and non-distended abdomen with no masses; BS present Skin: no rash, lesions, ulcerations, subcutaneous nodules or induration Musculoskeletal: no abnormality and no tenderness, normal ROM Neurologic: Alert and oriented x3, non focal Mental Status Exam: normal affect Hospitalist MIPS Advance Care Plan I have confirmed that the patient's Advanced Care Plan is present, code status is documented, or surrogate decision maker is listed in patient medical record.: Yes Medication Reconciliation I have utilized all available resources to obtain, update and review the patients current medications (includes all prescriptions, OTC, herbals, cannabis, and nutritional supplements).: Yes
[2025-02-16] MEDS: POTASSIUM CHLORIDE 20 MEQ ER TABLET PO (17:02)
[2025-02-16] MEDS: PREGABALIN (*CRX) 50 MG CAPSULE PO (20:16)
[2025-02-17] VITALS (7 sets, daily range): BP systolic 92–117; BP diastolic 63–83; PULSE 69–83; RESP 18–19; TEMP 36.5–36.8; O2SAT 96–98
[2025-02-17 04:12] LABS: Basophils Absolute Auto 0.1 K/mm3 (0.0-0.1); Basophils Percent Auto 0.4 % (0.2-1.2); Eosinophils Absolute Auto 0.1 K/mm3 (0-0.3); Eosinophils Percent Auto 0.9 % (0-4.4); Immature Granulocyte Absolute 0.06 K/mm3 (0.00-0.031); Immature Granulocyte Percent A 0.4 % (0-0.5); Lymphocytes Absolute Auto 2.59 K/mm3 (0.9-3.2); Lymphocytes Percent Auto 17.2 % (18.3-44.2); Mean Corpuscular HGB Conc 32.6 g/dl (32-36); Mean Corpuscular Hemoglobin 30.7 pg (26-34); Mean Corpuscular Volume 94.3 fl (80-100); Mean Platelet Volume 9.4 fl (7.4-10.4); Monocytes Absolute Auto 0.8 K/mm3 (0.1-0.6); Monocytes Percent Auto 5.3 % (2.6-8.5); Neutrophils Absolute Auto 11.4 K/mm3 (1.3-6.7); Neutrophils Percent Auto 75.8 % (45.5-73.1); Platelet Count Result 345 k/mm3 (150-375); Red Blood Count 4.88 M/mm3 (4.2-5.4); Red Cell Distribution Width 13.1 % (11.5-14.5); White Blood Count 15.1 K/mm3 (4.5-10.0)
[2025-02-17 04:24] LABS: Alanine Aminotransferase 45 U/L (6-35); Albumin Level 4.1 g/dL (3.5-5.1); Alkaline Phosphatase 59 U/L (38-126); Anion Gap 8 mmol/L (4-12); Aspartate Amino Transferase 136 U/L (14-36); Bilirubin,Total 1.1 mg/dL (0.2-1.3); Blood Urea Nitrogen 11 mg/dL (7-17); Calcium 9.1 mg/dL (8.4-10.2); Carbon Dioxide 24 mmol/L (22-30); Chloride 107 mmol/L (98-107); Estimated CRCL calculation 85 ml/min; Estimated Glomerular Filt Rate > 60; Glucose 136 mg/dL (65-110); Potassium 3.8 mmol/L (3.4-5.0); Sodium 139 mmol/L (137-145); Total Protein 7.2 g/dL (6.3-8.2)
[2025-02-17 04:25] LABS: Lactic Acid Reflex 1.1 mmol/L (0.7-2.0)
[2025-02-17] MEDS: ACETAMINOPHEN 500 MG TABLET PO (05:03)
[2025-02-17] MEDS: buPROPion HCL XL (24 HR) 150 MG TABCR PO (08:35)
[2025-02-17] MEDS: METOPROLOL SUCCINATE EXT REL 25 MG TABCR PO (08:35)
[2025-02-17] MEDS: ATORVASTATIN 40 MG TABLET 80 MG PO (08:36)
[2025-02-17] MEDS: ASPIRIN 81 MG ENTERIC TABLET PO (08:36)
[2025-02-17] MEDS: POTASSIUM CHLORIDE 20 MEQ ER TABLET PO (08:36)
[2025-02-17] MEDS: LOSARTAN POTASSIUM 25 MG TABLET PO (08:36)
[2025-02-17] MEDS: PREGABALIN (*CRX) 50 MG CAPSULE PO (08:36)
[2025-02-17] MEDS: hydroCHLOROthiazide 25 MG TABLET PO (08:36)
[2025-02-17] MEDS: GABAPENTIN 300 MG CAPSULE PO (08:36)
[2025-02-17] MEDS: ESCITALOPRAM OXALATE 10 MG TABLET 20 MG PO (08:37)
[2025-02-17] MEDS: TICAGRELOR 90 MG TABLET PO (08:37)
[2025-02-17] MEDS: ENOXAPARIN 40 MG/0.4 ML SYRINGE SUB-Q (08:37)
--- NOTE | 2025-02-17 08:38 | P.DS_ITS ---
DS: Admitting Diagnosis Discharge Date February 17, 2025 Admitting Diagnosis Anterior wall ST-elevation MD DS: Discharge Diagnosis Discharge Diagnosis (1) ST elevation (STEMI) myocardial infarction involving left anterior descendi ng coronary artery: Code(s): I21.02 - ST elevation (STEMI) myocardial infarction involving left anterior descending coronary artery Status: Acute DS: Summary Hospital Course Reason for hospitalization: ST elevation MD Hospital Course: This is a 54-year-old lady who presented to the hospital on the date of admission in transfer from [facility] with chest pain and ECG evidence of acute anterior wall infarction. She presented there with symptoms that began about 3 hours prior to presentation. She was transferred [facility] emergently with STEMI activation. She was taken immediately to the [facility] by Dr. Bailey. She was found to have subtotal occlusion of the proximal LAD and no other coronary lesions. She underwent successful PCI delivering a drug-eluting stent to this lesion with a very good angiographic outcome no complications and she was recovered in the intensive care unit. She had no post MD complications is ambulating and is asymptomatic today and appears to be a good candidate for discharge. The patient will have follow-up arranged with Dr. Hernandez in the office in 2-3 weeks following discharge. She was started on dual anti-platelet ther apy, beta-eveline ARB and statin. The medications were explained to the patient in detail. She had been taking amlodipine for hypertension which was discontinued. Patient has significant anterior wall hypokinesia with a global ejection fraction in the range of 30-35% following this event. Somewhat surprisingly the patient is firm on her decision to have a do not resuscitate orders on her chart. She has been firm in this decision and therefore it is not a candidate for a LifeVest. The importance of adherence to medications especially dual anti-platelet therapy was stressed to her in detail. Status at Discharge Functional status at discharge: independent ambulation Time Spent with Patient Time attestation: Total time spent providing and/or coordinating discharge services: Time spent: Less than 30 minutes Exam Const: General: comfortable and no acute distress Other: Very pleasant white female appearing her stated age no distress HENMT: Mouth: Yes moist mucous membranes Eyes: Sclera: sclerae normal Neck: Neck: supple and no JVD Resp: Effort & Inspection: normal respiratory effort Auscultation: clear to auscultation bilaterally Cardio: Rate: regular rate Rhythm: regular rhythm GI: GI Palp: Yes Soft to palpation Auscultation: normal bowel sounds Skin: General skin exam: normal color Neuro: Other: Alert and oriented x3 Extrem: General: normal to inspection Other: Normal pulses, no edema DS: Data Data Completed and Pending Labs on day of discharge: Labs from last 24 hours 02/17/25 04:07 WBC 15.1 H RBC 4.88 Hgb 15.0 Hct 46.0 MCV 94.3 MCH 30.7 MCHC 32.6 RDW 13.1 Plt Count 345 MPV 9.4 Immature Gran % (Auto) 0.4 Neut % (Auto) 75.8 H Lymph % (Auto) 17.2 L [place] % (Auto) 5.3 Eos % (Auto) 0.9 Baso % (Auto) 0.4 Lymph # (Auto) 2.59 [place] # (Auto) 0.8 H Eos # (Auto) 0.1 Baso # (Auto) 0.1 Abs Immat Gran (auto) 0.06 H Absolute Neuts (auto) 11.4 H Absolute Nucleated RBC 0.000 Nucleated RBC % 0.0 Sodium 139 Potassium 3.8 Chloride 107 Carbon Dioxide 24 Anion Gap 8 BUN 11 D Creatinine 0.74 Estim Creat Clear Calc 85 Estimated GFR > 60 Glucose 136 H Lactic Acid 1.1 Calcium 9.1 Magnesium 2.0 Total Bilirubin 1.1 AST 136 H ALT 45 H Alkaline Phosphatase 59 Total Protein 7.2 Albumin 4.1 Discharge Plan Discharge Attending physician on discharge: Ramirez Hernandez Consulting providers: [place] Mares Discharging Clinician: Talha Raman Patient Disposition: Home Activity: as tolerated Diet: heart healthy Patient Instructions: Antibiotic Form, Ticagrelor (By mouth), Acute Coronary Syndrome (DC), Hypercoagulation (GEN), Cardiac Rehabilitation (DC), Blood Thinners (GEN), Right Heart Catheterization (GEN) Patient Language: Romanian Stand Alone Forms: General Discharge Information Follow-up/Referrals: Talha Raman MD [Physician] - Discharge Medications: New ticagrelor [Brilinta] 90 mg Tablet 90 mg PO Q12HR 30 Days Qty: 60 12RF Rx Instructions: Ok to substitute with generic form. atorvastatin 40 mg Tablet 80 mg PO DAILY Qty: 90 5RF losartan 25 mg Tablet 25 mg PO DAILY Qty: 90 5RF metoprolol succinate [Toprol XL] 25 mg Tablet Extended Release 24 Hr 25 mg PO QAM Qty: 90 5RF aspirin 81 mg Tablet,Delayed Release (Dr/Ec) 81 mg PO QAM Qty: 30 5RF Continued albuterol sulfate 90 mcg/actuation HFA aerosol inhaler 2 puff inhalation QID PRN (Reason: shortness of breath or wheezing) Qty: 6.7 0RF omeprazole 20 mg capsule,delayed release(DR/EC) 20 mg PO DAILY PRN (Reason: indigestion) escitalopram oxalate 20 mg tablet 20 mg PO DAILY Qty: 30 0RF aspirin [Adult Low Dose Aspirin] 81 mg tablet,delayed release (DR/EC) 81 mg PO DAILY Qty: 30 2RF Rx Instructions: take with food gabapentin 300 mg capsule 300 mg PO TID bupropion HCl 150 mg tablet extended release 24 hr 150 mg PO DAILY Breztri Aerosphere 160-9-4.8 mcg/actuation HFA aerosol inhaler 2 inh inhalation BID Discontinued amlodipine [Norvasc] 5 mg tablet 5 mg PO DAILY Qty: 30 0RF hydrochlorothiazide 25 mg tablet 25 mg PO DAILY diclofenac sodium 75 mg tablet,delayed release (DR/EC) 75 mg PO DAILY PRN (Reason: pain) potassium chloride 20 mEq tablet,ER particles/crystals 20 meq PO BID Date of admission: 02/15/25 22:06 Primary Care Provider: AnFransisco Admitting Provider: Ramirez Hernandez Attending physician on admission: Ramirez Hernandez Condition: Improved
[2025-02-17] MEDS: FLUTICASONE/UMECLIDIN/VILANTER 100-62.5-25 MCG ELLIPTA 1 PUFF INHALATION ×2 (09:05→09:06)
--- NOTE | 2025-02-17 10:38 | PC.NURSE ---
The patient opted out of 'meds to bed' and the form is signed and in the patient's chart. Before the patient discharged, this RN confirmed that the prescriptions were filled and picked up. Patient's sister retrieved the medications from [facility] pharmacy in [place] and brought them to the hospital.
== END 2025-02-17 10:17 | disposition home or self-care (01) | DRG 322 ==
PROVIDERS: Internal Medicine; Admitting Provider Internal Medicine Cardiovascular Disease; PCP Hospitalist; Visit Provider Specialist
PROC: 4A023N7 Measurement of Cardiac Sampling and Pressure, Left Heart, Percutaneous Approach (ICD-10-PCS; CPT 93452; principal; 2025-02-15 22:10)
PROC: 027034Z Dilation of Coronary Artery, One Artery with Drug-eluting Intraluminal Device, Percutaneous Approach (ICD-10-PCS; CPT 92928; 2025-02-15 22:10)
PROC: 027034Z Dilation of Coronary Artery, One Artery with Drug-eluting Intraluminal Device, Percutaneous Approach (ICD-10-PCS; 2025-02-15 22:10)
PROC: 027034Z Dilation of Coronary Artery, One Artery with Drug-eluting Intraluminal Device, Percutaneous Approach (ICD-10-PCS; 2025-02-15 22:10)
DX: I21.02 ST elevation (STEMI) myocardial infarction involving left anterior descending coronary artery (principal); I25.5 Ischemic cardiomyopathy; I10 Essential (primary) hypertension; J44.9 Chronic obstructive pulmonary disease, unspecified; E87.6 Hypokalemia; E11.9 Type 2 diabetes mellitus without complications; M19.90 Unspecified osteoarthritis, unspecified site; N30.10 Interstitial cystitis (chronic) without hematuria; M79.7 Fibromyalgia; F41.9 Anxiety disorder, unspecified; F32.A Depression, unspecified; F17.210 Nicotine dependence, cigarettes, uncomplicated; Z86.711 Personal history of pulmonary embolism; Z86.718 Personal history of other venous thrombosis and embolism; Z79.82 Long term (current) use of aspirin
CPT/HCPCS: 36415; 80053; 80061; 83036; 83605; 83735; 85025; 87641; 92978; 93458; 94640; A9270; C1725; C1753; C1760; C1769; C1874; C1887; C1894; C8929; C9606; G0269; J0583; J1200; J1644; J1650; J2003; J2250; J2270; J3010; J7040; Q9957